=== PATIENT | female | born 1995 | race Caucasian/White ===

== ENCOUNTER → 2019-02-24 11:51 | Outpatient (CLI) | payer OTHER, SELFPAY ==
[2019-02-28 14:58] LABS: HPV Reflexed? NOT INDICATED
== END ==
PROVIDERS: Family Provider Family Medicine; PCP Family Medicine; Visit Provider Family Medicine
DX: Z12.4 Encounter for screening for malignant neoplasm of cervix (principal)
CPT/HCPCS: 88175; G0145

== ENCOUNTER → 2019-04-11 | Outpatient (CLI) | payer OTHER, SELFPAY ==
[2019-04-11 08:15] VITALS: BMI 17.5
[2019-04-11 12:30] LABS: Absolute Neutrophil Count 5.2 X10^3/uL (2.0-7.7); Basophil# 0.02 X10^3/uL; Basophil% 0.3 % (0-1); Eosinophil# 0.02 X10^3/uL; Eosinophils% 0.3 % (0-5); Hematocrit 40.6 % (37-47); Hemoglobin 13.3 g/dl (12.0-15.0); Mean Corp Hgb Conc 32.8 g/gl (32-36); Mean Corpuscular Hgb 29.4 pg (27.0-32.0); Mean Corpuscular Volume 89.6 fL (81-99); Mean Platelet Vol. 9.7 fl (6.2-12.0); Monocyte# 0.41 X10^3/uL; Monocyte% 5.4 % (0-10); Neutrophil # 5.23 X10^3/uL (2.7-7.7); Neutrophil % 68.9 % (47-70); Platelet Count 337 K/mm3 (150-450); RBC Distribution Width CV 12.6 % (11.6-14.6); RBC Distribution Width SD 40.3 fl (35.1-43.9); Red Blood Count 4.53 M/mm3 (4.2-5.4); White Blood Count 7.6 K/mm3 (4.4-11.0)
[2019-04-11 12:33] LABS: POSITIVE COUNT NO; POSITIVE DIFFERENTIAL NO; POSITIVE MORPHOLOGY NO
[2019-04-11 12:40] LABS: BUN 10 mg/dL (7-18); Creatinine, Serum 0.65 mg/dL (0.55-1.02); Glucose 80 mg/dL (74-106)
[2019-04-11 12:41] LABS: ALB/GLOB Ratio 1.2 RATIO (0.9-2.4); AST(SGOT) 22 U/L (15-37); Alanine Aminotransfer ALT/SGPT 40 U/L (13-56); Albumin, Serum 3.8 g/dL (3.2-5.0); Alkaline Phosphatase 48 U/L (45-117); Anion Gap 6 (5-15); BUN/Creat Ratio 15.4 RATIO (10-20); Calcium,Total 8.7 mg/dL (8.5-10.1); Chloride 107 mmol/L (98-107); EST Glomerular Filtration Rate 121 mL/min (>60); Est Glom Filt Rate - Afr Amer 147 mL/min (>60); Globulin 3.1 g/dL (2.2-4.2); Potassium 3.6 mmol/L (3.5-5.1); Protein, Total 6.9 g/dL (6.4-8.2); Sodium Level 139 mmol/L (136-145)
== END | disposition home or self-care (01) ==
LOC: BIMLAB 08:37
PROVIDERS: Family Provider Internal Medicine; PCP Internal Medicine; Visit Provider Internal Medicine
DX: K52.9 Noninfective gastroenteritis and colitis, unspecified (principal)
CPT/HCPCS: 36415; 80053; 85025

== ENCOUNTER → 2019-12-17 09:30 | Outpatient (CLI) | payer OTHER, SELFPAY ==
[2019-04-11 08:15] VITALS: BMI 17.5
[2019-12-17 10:09] LABS: hCG Titer Quant., Serum 339 mIU/mL (1-3)
== END ==
PROVIDERS: PCP Internal Medicine; Referring Provider Obstetrics & Gynecology; Visit Provider Obstetrics & Gynecology
DX: O20.0 Threatened abortion (principal); Z3A.00 Weeks of gestation of pregnancy not specified
CPT/HCPCS: 36415; 84702

== ENCOUNTER → 2019-12-24 09:24 | Outpatient (CLI) | payer OTHER, SELFPAY ==
[2019-12-24 08:42] VITALS: BMI 17.5
[2019-12-24 11:45] LABS: Rubella IgG < 0.2 IU/mL
[2019-12-26 13:11] LABS: V-Zoster IgG (Immunity) > 4000 index (Immune >165)
== END ==
PROVIDERS: PCP Internal Medicine; Referring Provider Obstetrics & Gynecology; Visit Provider Obstetrics & Gynecology
DX: Z01.84 Encounter for antibody response examination (principal)
CPT/HCPCS: 36415; 86762; 86787

== ENCOUNTER → 2020-01-22 14:19 | Outpatient (CLI) | payer OTHER, SELFPAY ==
[2020-01-22 13:52] VITALS: BMI 18.4
[2020-01-22 16:22] LABS: hCG Titer Quant., Serum < 1 mIU/mL (1-3)
== END ==
PROVIDERS: PCP Internal Medicine; Referring Provider Nurse Practitioner Women's Health; Visit Provider Nurse Practitioner Women's Health
DX: O03.9 Complete or unspecified spontaneous abortion without complication (principal)
CPT/HCPCS: 36415; 84702; 86850; 86900; 86901

== ENCOUNTER → 2020-01-29 15:40 | Outpatient (CLI) | payer OTHER, SELFPAY ==
[2020-01-22 14:48] VITALS: BMI 17.5
--- NOTE | 2020-01-29 15:42 | US_ITS ---
STUDY: ULTRASOUND OF THE FEMALE PELVIS - COMPLETE REASON FOR EXAM: Female, 24 years old. PAINFUL MENSES LMP: 01/14/2020 TECHNIQUE: Transabdominal real-time exam with madrid scale image documentation. Transvaginal ultrasound was utilized for better visualization of the ovaries and adnexal areas. TECHNICAL QUALITY: Adequate. COMPARISON: None. FINDINGS: The uterus is anteverted and is in a midline position in transabdominal exam, retroverted in transvaginal exam. The uterus measures 7.8 x 5.4 x 3.4 cm. There is a Nabothian cyst of the cervix. The endometrium measures 10 mm in thickness, and is hyperechoic. There is no demonstrated endometrial mass. There is no demonstrated myometrial mass. I.U.D. - The patient does not have an I.U.D. The right ovary is visualized. The right ovary measures 3.4 x 2.7 x 1.7 cm. Ovarian volume 8 mL. There is no right ovarian cyst or ovarian mass. There is no visualized right adnexal mass or complex lesion. There is normal arterial and normal venous vascularity. The left ovary is visualized. The left ovary measures 3.6 x 2.7 x 1.6 cm. Ovarian volume 8 mL. There is no left ovarian cyst or ovarian mass. There is no visualized left adnexal mass or complex lesion. There is normal arterial and normal venous vascularity. There is minimal fluid in the cul-de-sac. The pre void volume of the bladder was 556 ml. Sedimentation noted in the urinary bladder. Polycystic ovary disease: No. US/Pelvic (Non ) IMPRESSION: Normal female pelvis. Electronically Signed: Consuelo Riggs MD at 0:06 EST , Service support ,
--- NOTE | 2020-01-29 15:42 | US_ITS ---
STUDY: ULTRASOUND OF THE FEMALE PELVIS - COMPLETE REASON FOR EXAM: Female, 24 years old. PAINFUL MENSES LMP: 01/14/2020 TECHNIQUE: Transabdominal real-time exam with madrid scale image documentation. Transvaginal ultrasound was utilized for better visualization of the ovaries and adnexal areas. TECHNICAL QUALITY: Adequate. COMPARISON: None. FINDINGS: The uterus is anteverted and is in a midline position in transabdominal exam, retroverted in transvaginal exam. The uterus measures 7.8 x 5.4 x 3.4 cm. There is a Nabothian cyst of the cervix. The endometrium measures 10 mm in thickness, and is hyperechoic. There is no demonstrated endometrial mass. There is no demonstrated myometrial mass. I.U.D. - The patient does not have an I.U.D. The right ovary is visualized. The right ovary measures 3.4 x 2.7 x 1.7 cm. Ovarian volume 8 mL. There is no right ovarian cyst or ovarian mass. There is no visualized right adnexal mass or complex lesion. There is normal arterial and normal venous vascularity. The left ovary is visualized. The left ovary measures 3.6 x 2.7 x 1.6 cm. Ovarian volume 8 mL. There is no left ovarian cyst or ovarian mass. There is no visualized left adnexal mass or complex lesion. There is normal arterial and normal venous vascularity. There is minimal fluid in the cul-de-sac. The pre void volume of the bladder was 556 ml. Sedimentation noted in the urinary bladder. Polycystic ovary disease: No. US/Transvaginal Non- IMPRESSION: Normal female pelvis. Electronically Signed: Consuelo Riggs MD at 0:06 EST , Service support ,
== END ==
PROVIDERS: PCP Internal Medicine; Referring Provider Nurse Practitioner Women's Health; Visit Provider Nurse Practitioner Women's Health
DX: N94.6 Dysmenorrhea, unspecified (principal)
CPT/HCPCS: 76830; 76856

== ENCOUNTER → 2020-02-09 18:06 | Outpatient (CLI) | payer OTHER, SELFPAY ==
[2020-01-22 14:48] VITALS: BMI 17.5
[2020-02-09 19:33] LABS: hCG Titer Quant., Serum 402 mIU/mL (1-3)
[2020-02-11 19:29] LABS: hCG Titer Quant., Serum 1033 mIU/mL (1-3)
== END ==
PROVIDERS: Nurse Practitioner Women's Health; PCP Internal Medicine; Referring Provider Obstetrics & Gynecology; Visit Provider Obstetrics & Gynecology
DX: N91.2 Amenorrhea, unspecified (principal)
CPT/HCPCS: 36415; 84702

== ENCOUNTER → 2020-02-20 07:41 | Outpatient (CLI) | payer OTHER, SELFPAY ==
[2020-02-10 15:31] VITALS: BMI 17.5
--- NOTE | 2020-02-20 07:54 | US_ITS ---
STUDY: FIRST TRIMESTER OBSTETRICAL ULTRASOUND (TWINS) REASON FOR EXAM: Female, 24 years old. LMP: Unknown. DATING TECHNIQUE: Transabdominal and Transvaginal TECHNICAL QUALITY: Adequate. COMPARISON: None. FINDINGS: There are two demonstrated intrauterine gestational sacs. The amniotic membrane cannot be visualized. BABY A The mean sac diameter (MSD) measure 1.16 cm, indicating an estimated gestational age (EGA) of 5 weeks, 5 days. There is a visualized yolk sac. The yolk sac measures 2.3 mm. There is no demonstrated embryo ( pole). The estimated gestation age (EGA) by US is 5 weeks, 5 days. The estimated date of delivery (WILLIAM) by US is October 17, 2020. BABY B The mean sac diameter (MSD) measure 1.25 cm, indicating an estimated gestational age (EGA) of 5 weeks, 6 days. There is a visualized yolk sac. The yolk sac measures 2.8 mm. There is no demonstrated embryo ( pole). The estimated gestation age (EGA) by US is 5 weeks, 6 days. The estimated date of delivery (WILLIAM) by US is October 16, 2020. MATERNAL ANATOMY The uterus measures 9 cm x 5.9 cm x 4.8 cm. There is no demonstrated uterine fibroid. The cervix is closed. The right ovary measures 4.5 cm x 2.6 cm x 1.8. There is no right ovarian cyst. There is no visualized right adnexal mass or complex lesion. The left ovary measures 3 cm x 2.9 cm x 1.9. There is no left ovarian cyst. There is no visualized left adnexal mass or complex lesion. There is no fluid in the cul de sac. US/Init OB < 14Wks US IMPRESSION: Normal intrauterine first trimester Electronically Signed: Isaias Major, at 11:47 EDT , Service support ,
== END ==
PROVIDERS: PCP Internal Medicine; Referring Provider Obstetrics & Gynecology; Visit Provider Obstetrics & Gynecology
DX: N91.2 Amenorrhea, unspecified (principal)
CPT/HCPCS: 76801

== ENCOUNTER → 2020-03-05 15:04 | Outpatient (CLI) | payer OTHER, SELFPAY ==
[2020-02-10 15:31] VITALS: BMI 17.5
--- NOTE | 2020-03-05 15:06 | US_ITS ---
STUDY: FIRST TRIMESTER OBSTETRICAL ULTRASOUND (TWINS) REASON FOR EXAM: Female, 24 years old. LMP: January 14, 2020 Dating twin . TECHNIQUE: Transvaginal TECHNICAL QUALITY: Adequate. COMPARISON: February 20, 2020. FINDINGS: There are two demonstrated intrauterine gestational sacs. There is a thick wall between the gestational sacs suggesting dichorionic . age by last menstrual period is 7 weeks, 2 days. WILLIAM by last menstrual period is October 20, 2020. BABY A The mean sac diameter (MSD) measure 2.8 cm, indicating an estimated gestational age (EGA) of 8 weeks, 0 days. There is a visualized yolk sac. Yolk sac measures 0.25 cm There is visualization of an embryo. Fetus measures 1.03 cm consistent with a gestational age of 7 weeks, 1 day. The estimated gestational age (EGA) by prior ultrasound is 7 weeks, 5 days. Estimated date of delivery (WILLIAM) by prior ultrasound is October 17, 2020 The estimated gestation age (EGA) by current US is 7 weeks, 4 days. The estimated date of delivery (WILLIAM) by current US is October 18, 2020.. There is demonstrated cardiac activity with a heart rate 144 bpm. BABY B The mean sac diameter (MSD) measure 2.98 cm, indicating an estimated gestational age (EGA) of 8 weeks, 2 days. There is a visualized yolk sac. The yolk sac measures 0.25 cm. There is visualization of an embryo. The crown-rump length (CRL) measures 1.25 cm, indicating an estimated gestational age (EGA) of 7 weeks, 4 days. The estimated gestation age (EGA) by prior US is 7 weeks, 6 days. The estimated date of delivery (WILLIAM) by prior US is October 16, 2020. The estimated gestation age (EGA) by current US is 8 weeks, 0 days. The estimated date of delivery (WILLIAM) by current US is October 15, 2020. There is demonstrated cardiac activity with a heart rate 140 bpm. MATERNAL ANATOMY The retroverted uterus measures 9.1 x 5.8 x 8.3 cm. There is no demonstrated uterine fibroid. The cervix is closed. The right ovary measures 3.3 x 1.86 x 2.0 cm. There are multiple follicles of the right ovary without a dominant cyst. There is no visualized right adnexal mass or complex lesion. The left ovary measures 2.5 x 1.5 x 1.9 cm. There are multiple follicles of the left ovary without a dominant cyst. There is no visualized left adnexal mass or complex lesion. There is no fluid in the cul de sac. IMPRESSION: 1. Dichorionic diamniotic intrauterine . 2. Fetus a demonstrates a gestational age of 7 weeks, 4 days with WILLIAM of October 18, 2020. heart rate is 144 bpm. Adequate interval growth since the prior ultrasound. 3. Fetus B demonstrates a gestational age of 8 weeks, 0 days with WILLIMA of October 15, 2020. heart rate is 140 bpm. Adequate interval growth since the prior ultrasound. 4. Normal ovaries. Electronically Signed: Jose Chiang DO at 17:56 EDT Tel [phone], Service support , STUDY: FIRST TRIMESTER OBSTETRICAL ULTRASOUND (TWINS) REASON FOR EXAM: Female, 24 years old. LMP: January 14, 2020 Dating twin . TECHNIQUE: Transvaginal TECHNICAL QUALITY: Adequate. COMPARISON: February 20, 2020. FINDINGS: There are two demonstrated intrauterine gestational sacs. There is a thick wall between the gestational sacs suggesting dichorionic . age by last menstrual period is 7 weeks, 2 days. WILLIAM by last menstrual period is October 20, 2020. BABY A The mean sac diameter (MSD) measure 2.8 cm, indicating an estimated gestational age (EGA) of 8 weeks, 0 days. There is a visualized yolk sac. Yolk sac measures 0.25 cm There is visualization of an embryo. Fetus measures 1.03 cm consistent with a gestational age of 7 weeks, 1 day. The estimated gestational age (EGA) by prior ultrasound is 7 weeks, 5 days. Estimated date of delivery (WILLIAM) by prior ultrasound is October 17, 2020 The estimated gestation age (EGA) by current US is 7 weeks, 4 days. The estimated date of delivery (WILLIAM) by current US is October 18, 2020.. There is demonstrated cardiac activity with a heart rate 144 bpm. BABY B The mean sac diameter (MSD) measure 2.98 cm, indicating an estimated gestational age (EGA) of 8 weeks, 2 days. There is a visualized yolk sac. The yolk sac measures 0.25 cm. There is visualization of an embryo. The crown-rump length (CRL) measures 1.25 cm, indicating an estimated gestational age (EGA) of 7 weeks, 4 days. The estimated gestation age (EGA) by prior US is 7 weeks, 6 days. The estimated date of delivery (WILLIAM) by prior US is October 16, 2020. The estimated gestation age (EGA) by current US is 8 weeks, 0 days. The estimated date of delivery (WILLIAM) by current US is October 15, 2020. There is demonstrated cardiac activity with a heart rate 140 bpm. MATERNAL ANATOMY The retroverted uterus measures 9.1 x 5.8 x 8.3 cm. There is no demonstrated uterine fibroid. The cervix is closed. The right ovary measures 3.3 x 1.86 x 2.0 cm. There are multiple follicles of the right ovary without a dominant cyst. There is no visualized right adnexal mass or complex lesion. The left ovary measures 2.5 x 1.5 x 1.9 cm. There are multiple follicles of the left ovary without a dominant cyst. There is no visualized left adnexal mass or complex lesion. There is no fluid in the cul de sac. US/Init OB < 14Wks US IMPRESSION: 1. Dichorionic diamniotic intrauterine . 2. Fetus a demonstrates a gestational age of 7 weeks, 4 days with WILLIAM of October 18, 2020. heart rate is 144 bpm. Adequate interval growth since the prior ultrasound. 3. Fetus B demonstrates a gestational age of 8 weeks, 0 days with WILLIAM of October 15, 2020. heart rate is 140 bpm. Adequate interval growth since the prior ultrasound. 4. Normal ovaries. Electronically Signed: Jose Chiang DO at 17:57 EDT Tel [phone], Service support ,
== END ==
PROVIDERS: PCP Internal Medicine; Referring Provider Obstetrics & Gynecology; Visit Provider Obstetrics & Gynecology
DX: O30.001 Twin pregnancy, unspecified number of placenta and unspecified number of amniotic sacs, first trimester (principal); Z3A.00 Weeks of gestation of pregnancy not specified
CPT/HCPCS: 76801; 76802

== ENCOUNTER → 2020-03-22 10:26 | Outpatient (CLI) | payer OTHER, SELFPAY ==
[2020-03-22 09:31] VITALS: BMI 17.5
[2020-03-22 11:54] LABS: Absolute Lymphocyte Count 1.55 X10^3/uL (0.83-4.51); Absolute Neutrophil Count 9.2 X10^3/uL (2.0-7.7); Basophil# 0.03 X10^3/uL; Basophil% 0.3 % (0-1); Eosinophil# 0.04 X10^3/uL; Eosinophils% 0.4 % (0-5); Hematocrit 37.9 % (37-47); Lymphocyte # 1.55 X10^3/ul (4.0); Lymphocyte % 13.7 % (19-41); Mean Corp Hgb Conc 34.3 g/dL (32-36); Mean Corpuscular Hgb 30.2 pg (27.0-32.0); Mean Corpuscular Volume 87.9 fL (81-99); Monocyte# 0.42 X10^3/uL; Monocyte% 3.7 % (0-10); NRBC Flagged by Analyzer 0 % (0-5); Neutrophil # 9.24 X10^3/uL (2.7-7.7); Neutrophil % 81.5 % (47-70); Platelet Count 244 K/mm3 (150-450); RBC Distribution Width CV 11.7 % (11.6-14.6); RBC Distribution Width SD 37.8 fl (35.1-43.9); Red Blood Count 4.31 M/mm3 (4.2-5.4); White Blood Count 11.3 K/mm3 (4.4-11.0)
[2020-03-22 12:48] LABS: HIV - WCH Non-Reactive (Nonreactive); Hepatitis B Surface Antigen Non-Reactive (Nonreactive); Hepatitis C Antibody Non-Reactive (Nonreactive); Rubella IgG 225.6 IU/mL
[2020-03-22 16:32] LABS: Amphetamine Urine VISTA NEGATIVE (<1000 ng/mL); Barbiturate Urine VISTA NEGATIVE (< 200 ng/mL); Benzodiazepine Urine VISTA NEGATIVE (< 200 ng/mL); Cocaine Urine VISTA NEGATIVE (< 300 ng/mL); Ecstacy Urine VISTA NEGATIVE (< 500 ng/mL); Methadone Urine VISTA NEGATIVE (< 300 ng/mL); PCP Urine VISTA NEGATIVE (< 25 ng/mL); THC Urine VISTA NEGATIVE (< 50 ng/mL); Vista UDS pH Range 7
[2020-03-22 19:49] LABS: Chlamydia Trachomatis by PCR Negative (Negative); Neisserai gonorrhoeae by PCR Negative (Negative); Probe Check PASS; Sample Adequacy Control PASS; Specimen Processing Control PASS
[2020-03-25 01:34] LABS: Rapid Plasmin Reagin (RPR) NONREACTIVE (NONREACTIVE)
== END ==
PROVIDERS: PCP Internal Medicine; Referring Provider Obstetrics & Gynecology; Visit Provider Obstetrics & Gynecology
DX: Z34.90 Encounter for supervision of normal pregnancy, unspecified, unspecified trimester (principal)
CPT/HCPCS: 36415; 80307; 85025; 86592; 86703; 86762; 86803; 86850; 86900; 86901; 87086; 87340; 87491; 87591

== ENCOUNTER → 2020-07-16 09:19 | Outpatient (CLI) | payer OTHER, SELFPAY ==
[2020-07-16 09:15] VITALS: BMI 17.5
[2020-07-16 09:56] LABS: Absolute Lymphocyte Count 1.38 X10^3/uL (0.83-4.51); Absolute Neutrophil Count 9.7 X10^3/uL (2.0-7.7); Basophil# 0.03 X10^3/uL; Basophil% 0.3 % (0-1); Eosinophil# 0.04 X10^3/uL; Eosinophils% 0.3 % (0-5); Hemoglobin 11.7 g/dL (12.0-15.0); Lymphocyte # 1.38 X10^3/ul (4.0); Lymphocyte % 11.6 % (19-41); Mean Corp Hgb Conc 33.4 g/dL (32-36); Mean Corpuscular Hgb 31.5 pg (27.0-32.0); Mean Corpuscular Volume 94.1 fL (81-99); Mean Platelet Vol. 9.6 fl (6.2-12.0); Monocyte% 4.2 % (0-10); NRBC Flagged by Analyzer 0 % (0-5); Neutrophil # 9.66 X10^3/uL (2.7-7.7); Neutrophil % 81.2 % (47-70); Platelet Count 187 K/mm3 (150-450); RBC Distribution Width CV 12.8 % (11.6-14.6); RBC Distribution Width SD 44.1 fl (35.1-43.9); Red Blood Count 3.72 M/mm3 (4.2-5.4); White Blood Count 11.9 K/mm3 (4.4-11.0)
[2020-07-16 10:06] LABS: Glucose Challenge Gest 1H 50g 90 mg/dL (70-140)
== END ==
PROVIDERS: PCP Internal Medicine; Referring Provider Obstetrics & Gynecology; Visit Provider Obstetrics & Gynecology
DX: Z34.90 Encounter for supervision of normal pregnancy, unspecified, unspecified trimester (principal)
CPT/HCPCS: 36415; 82950; 85025

== ENCOUNTER 2020-08-30 11:15 | Outpatient (CLI) | payer OTHER, SELFPAY ==
[2020-08-30 10:43] VITALS: BMI 17.5
[2020-08-30 12:11] VITALS: BMI 26.9
--- NOTE | 2020-08-30 12:54 | OB.TRI.PN_ITS ---
Progress Notes Date of Service: 08/30/20 Progress Note: Patient presents for triage evaluation secondary to di-di-twins FHT: A 135 Moderate variability reactive no decelerations category I tracing B 145Moderate variability reactive no decelerations category I tracing [place]: No regular contractions Assessment and plan: Di-di-twins recommend weekly NSTs, reactive NST, reassuring maternal and status patient discharged to home to follow-up as scheduled next week. See problem list details for additional plan information. Multi Select Codes - Urinary/Genital Urinary/Genital CPT Codes: 58810-71 non-stress test Interp
[2020-08-30 13:40] VITALS: BP 118/65; TEMP 36.7
[2020-08-30 13:41] VITALS: BP 118/65; PULSE 93; PULSE 94; O2SAT 96
== END 2020-08-30 13:50 | disposition home or self-care (01) ==
LOC: WPOUT 11:46 → WP 11:46
PROVIDERS: PCP Internal Medicine; Visit Provider Obstetrics & Gynecology
DX: O30.043 Twin pregnancy, dichorionic/diamniotic, third trimester (principal); Z3A.00 Weeks of gestation of pregnancy not specified
CPT/HCPCS: 59025; 59050; 99218; G0378

== ENCOUNTER 2020-09-04 23:55 | Outpatient (CLI) | payer OTHER, SELFPAY ==
[2020-09-05 00:15] VITALS: BP 114/68; PULSE 115
[2020-09-05 00:16] VITALS: TEMP 37; O2SAT 96
[2020-09-05 00:43] VITALS: BMI 27.8
[2020-09-05 00:59] LABS: Glucose, Dipstick Normal (Normal); Ketone-Dipstick Negative (Negative); Leukocyte Esterase-Dipstick Negative /ul (Negative); Nitrite-Dipstick Negative (Negative); Occult Blood-Urine Negative /ul (Negative); Protein-Dipstick Negative (Negative); Specific Gravity, Urine 1.005 (1.002-1.030); Urine Bilirubin Dipstick Negative (Negative); Urine Urobilinogen Normal (Normal)
[2020-09-05 01:07] LABS: Color, Urine Yellow (Yellow); Urine Clarity Clear (Clear)
--- NOTE | 2020-09-05 07:43 | OB.TRI.PN ---
Progress Notes Date of Service: 09/04/20 Progress Note: Patient presents for triage evaluation secondary to contractions FHT: A 140 Moderate variability reactive no decelerations category I tracing B 140 Moderate variability reactive no decelerations category I tracing [place]: irritability Contractions Assessment and plan: threatened labor 1 cm dilated, no change. Reactive NST, reassuring maternal and status patient discharged to home to follow-up as scheduled. See problem list details for additional plan information. Laboratory Studies: Laboratory Tests 09/05/20 Range/Units 00:15 Urine Color Yellow (Yellow) Urine Clarity Clear (Clear) Urine pH 7.0 (5.0 - 8.0) Ur Specific [place] 1.005 (1.002-1.030) Urine Protein Negative (Negative) mg/dl Urine Glucose (UA) Normal (Normal) mg/dl Urine Ketones Negative (Negative) mg/dl Urine Occult Blood Negative (Negative) /ul Urine Nitrite Negative (Negative) Urine Bilirubin Negative (Negative) mg/dL Urine Urobilinogen Normal (Normal) mg/dl Ur Leukocyte Esterase Negative (Negative) /ul Multi Select Codes - Urinary/Genital Urinary/Genital CPT Codes: 77760-65 non-stress test Interp
== END 2020-09-05 01:57 | disposition home or self-care (01) ==
LOC: WPOUT 23:59 → OBT 09-05 00:01
PROVIDERS: PCP Internal Medicine; Visit Provider Obstetrics & Gynecology
DX: O47.9 False labor, unspecified (principal); Z3A.00 Weeks of gestation of pregnancy not specified
CPT/HCPCS: 59025; 59050; 81002; 99218; G0378

== ENCOUNTER 2020-09-08 08:40 | Outpatient (CLI) | payer OTHER, SELFPAY ==
[2020-09-08 08:04] VITALS: BMI 27.8
[2020-09-08 09:08] VITALS: BP 112/70; PULSE 128; TEMP 36.2; O2SAT 96; O2SAT 97
[2020-09-08 09:10] VITALS: BMI 27.8
[2020-09-08 09:24] LABS: Fetal Fibronectin Negative
--- NOTE | 2020-09-08 10:22 | US_ITS ---
STUDY: OBSTETRICAL ULTRASOUND - BIOPHYSICAL PROFILE REASON FOR EXAM: Female, 24 years old -WELL BEING LMP: PRIOR ULTRASOUND: None. TECHNIQUE: TECHNICAL QUALITY: Adequate. FINDINGS: There is a twin gestation. Next Fetus a is in a cephalic presentation. There is demonstrated cardiac activity with a heart rate of 143 bpm. There is a normal amniotic fluid volume. The largest amniotic fluid pocket measures 4.2 cm. The amniotic fluid index (NADIR) is cm. The placenta is left lateral in location and is not low lying. There are Grade 1 placental changes. Age by LMP: 34 weeks, 0 days. WILLIAM by LMP: 10/20/2020. BIOPHYSICAL PROFILE: Breathing Movements (FBM): 2 Gross Body Movements (GBM): 2 Tone (FT): 2 Amniotic Fluid Volume (AFV): 2 TOTAL SCORE: / 8 Fetus B is in a transverse lie with the head on the maternal right side. There is demonstrated cardiac activity with a heart rate of 144 bpm. There is a normal amniotic fluid volume. The largest amniotic fluid pocket measures 3.2 cm. The amniotic fluid index (NADIR) is cm. The placenta is posterior in location and is not low lying. There are Grade 1 placental changes. Age by LMP: 34 weeks, 0 days. WILLIAM by LMP: 10/20/2020. BIOPHYSICAL PROFILE: Breathing Movements (FBM): 2 Gross Body Movements (GBM): 2 Tone (FT): 2 Amniotic Fluid Volume (AFV): 2 TOTAL SCORE: US/Biophysical Prof W/O Non Stres IMPRESSION: Normal biophysical profile of 07/03. Electronically Signed: Arnoldo Murrieta MD at 12:59 EDT Tel , Service support , Refer to twin gestation of biophysical profile. Electronically Signed: Arnoldo Murrieta MD at 12:59 EDT Tel , Service support ,
[2020-09-08] MEDS: Betamethasone/Betamethasone 30 MG/5 ML Vial 12 MG IM (10:33)
--- NOTE | 2020-09-08 13:23 | OB.TRI.PN ---
Progress Notes Date of Service: 09/08/20 Progress Note: NST done for twins, unable to obtain so BPPs done and both 07/03. Laboratory Studies: Laboratory Tests 09/08/20 Range/Units 08:30 Fibronectin Negative
== END 2020-09-08 14:00 | disposition home or self-care (01) ==
PROVIDERS: PCP Internal Medicine; Referring Provider Obstetrics & Gynecology; Visit Provider Obstetrics & Gynecology
DX: O30.003 Twin pregnancy, unspecified number of placenta and unspecified number of amniotic sacs, third trimester (principal); Z3A.34 34 weeks gestation of pregnancy
CPT/HCPCS: 59025; 76819; 82731; 96372; J0702

== ENCOUNTER 2020-09-09 09:15 | Outpatient (CLI) | payer OTHER, SELFPAY ==
[2020-09-08 09:10] VITALS: BMI 27.8
[2020-09-09 09:30] VITALS: BMI 27.6
[2020-09-09] MEDS: Betamethasone/Betamethasone 30 MG/5 ML Vial 12 MG IM (09:47)
--- NOTE | 2020-09-09 10:00 | NURSING ---
pt here for second celestone injection , very tearful from news of family member that was in a serious accident. pt wanting to travel 7hr away and was encouraged not to. celestone given and pt given signs of labor to report to Dr office. pt and stated understanding.
--- NOTE | 2020-09-09 10:07 | NURSING ---
vitals 98.1-104-20 121/68
--- NOTE | 2020-09-09 16:59 | OB.TRI.PN ---
Progress Notes Date of Service: 09/09/20 Progress Note: prematurity, twins, threatened PTL- celestone injection given
== END 2020-09-09 09:55 | disposition home or self-care (01) ==
LOC: WPOUT 09:21 → WP 09:30
PROVIDERS: PCP Internal Medicine; Referring Provider Obstetrics & Gynecology; Visit Provider Obstetrics & Gynecology
DX: O60.00 Preterm labor without delivery, unspecified trimester (principal); Z3A.00 Weeks of gestation of pregnancy not specified; O30.009 Twin pregnancy, unspecified number of placenta and unspecified number of amniotic sacs, unspecified trimester
CPT/HCPCS: 96372; 99218; G0378; J0702

== ENCOUNTER 2020-09-09 23:44 | Outpatient (CLI) | payer OTHER, SELFPAY ==
[2020-09-09 09:30] VITALS: BMI 27.6
[2020-09-10] VITALS: BP 109/66; PULSE 106; PULSE 98; TEMP 36.7; O2SAT 98
[2020-09-10 00:01] VITALS: TEMP 36.7
[2020-09-10 00:17] VITALS: BMI 27.8
[2020-09-10 00:45] LABS: ROM Internal Control Test YES-OK TO RESULT pt. (Internal QC); ROM Patient Test Negative (Negative)
[2020-09-10 07:24] VITALS: BP 127/79; PULSE 85; TEMP 36.7
[2020-09-10 08:11] VITALS: BP 130/81; PULSE 76
--- NOTE | 2020-09-12 22:04 | OB.TRI.PN ---
Progress Notes Date of Service: 09/10/20 Progress Note: seen for possible rom rom negative fht present x 2 dc home labor precautions Laboratory Studies: Laboratory Tests 09/10/20 Range/Units 00:08 Vag Amniotic Fld Detect Negative (Negative) Multi Select Codes - Urinary/Genital Urinary/Genital CPT Codes: No Charge - report visit
== END 2020-09-10 01:00 | disposition home or self-care (01) ==
LOC: WPOUT 23:46 → WP 09-10 10:55
PROVIDERS: PCP Internal Medicine; Referring Provider Obstetrics & Gynecology; Visit Provider Obstetrics & Gynecology
DX: O26.899 Other specified pregnancy related conditions, unspecified trimester (principal); Z3A.00 Weeks of gestation of pregnancy not specified
CPT/HCPCS: 59025; 59050; 84112; 99218; G0378

== ENCOUNTER → 2020-09-17 12:33 | Outpatient (CLI) | payer OTHER, SELFPAY ==
[2020-09-10 00:17] VITALS: BMI 27.8
[2020-09-17 08:50] VITALS: BMI 27.4
--- NOTE | 2020-09-17 12:35 | US_ITS ---
STUDY: OBSTETRICAL ULTRASOUND - BIOPHYSICAL PROFILE REASON FOR EXAM: Female, 25 years old WELL BEING - TWINS LMP: PRIOR ULTRASOUND: None. TECHNIQUE: TECHNICAL QUALITY: Adequate. FINDINGS: There is a twin gestation. Fetus a is in a cephalic presentation. There is demonstrated cardiac activity with a heart rate of 152 bpm. There is a normal amniotic fluid volume. The largest amniotic fluid pocket measures 6.2 cm. The amniotic fluid index (NADIR) is cm. The placenta is posterior in location and is not low lying. There are Grade 2 placental changes. Age by LMP: 35 weeks, 2 days. WILLIAM by LMP: 10/20/2020. BIOPHYSICAL PROFILE: Breathing Movements (FBM): 2 Gross Body Movements (GBM): 2 Tone (FT): 2 Amniotic Fluid Volume (AFV): 2 TOTAL SCORE: / Fetus B is in an oblique presentation with the head on the maternal right side. There is demonstrated cardiac activity with a heart rate of 147 bpm. There is a normal amniotic fluid volume. The largest amniotic fluid pocket measures 6.1 cm. The amniotic fluid index (NADIR) is cm. The placenta is posterior in location and is not low lying. There are Grade 2 placental changes. Age by LMP: 35 weeks, 2 days. WILLIAM by LMP: 10/20/2020. BIOPHYSICAL PROFILE: Breathing Movements (FBM): 2 Gross Body Movements (GBM): 2 Tone (FT): 2 Amniotic Fluid Volume (AFV): 2 TOTAL SCORE: US/Biophysical Prof W/O Non Stres IMPRESSION: Normal biophysical profile of 07/03. Electronically Signed: Arnoldo Murrieta MD at 12:52 EDT Tel , Service support , Refer to twin gestation biophysical profile. Electronically Signed: Arnoldo Murrieta MD at 12:53 EDT Tel , Service support ,
== END ==
PROVIDERS: PCP Internal Medicine; Referring Provider Obstetrics & Gynecology; Visit Provider Obstetrics & Gynecology
DX: O30.049 Twin pregnancy, dichorionic/diamniotic, unspecified trimester (principal); Z3A.35 35 weeks gestation of pregnancy
CPT/HCPCS: 76819

== ENCOUNTER → 2020-09-22 07:58 | Outpatient (CLI) | payer OTHER, SELFPAY ==
[2020-09-17 08:50] VITALS: BMI 27.4
--- NOTE | 2020-09-22 08:08 | US_ITS ---
STUDY: OBSTETRICAL ULTRASOUND - BIOPHYSICAL PROFILE REASON FOR EXAM: Female, 25 years old well being - twins baby A LMP: 01/14/2020 PRIOR ULTRASOUND: Comparison is made with prior study dated 09/17/2020. TECHNIQUE: Transabdominal TECHNICAL QUALITY: Adequate. FINDINGS: There is a single intrauterine fetus. The fetus is in a cephalic presentation. There is demonstrated cardiac activity with a heart rate of 136 bpm. There is a normal amniotic fluid volume. The largest amniotic fluid pocket measures 3 cm x 2.4 cm. The amniotic fluid index (NADIR) is within normal limits cm. The placenta is left lateral in location and is not low lying. There are Grade 2 placental changes. BIOPHYSICAL PROFILE: Breathing Movements (FBM): 2 Gross Body Movements (GBM): 2 Tone (FT): 2 Amniotic Fluid Volume (AFV): 2 TOTAL SCORE: 8 / 8 IMPRESSION: Normal biophysical profile of 8/8. Electronically Signed: Isaias Major, at 15:44 EDT , Service support , STUDY: OBSTETRICAL ULTRASOUND - BIOPHYSICAL PROFILE REASON FOR EXAM: Female, 25 years old well being - twins baby B LMP: 01/14/2020 PRIOR ULTRASOUND: Comparison is made with prior study dated 09/17/2020. TECHNIQUE: Transabdominal TECHNICAL QUALITY: Adequate. FINDINGS: There is a single intrauterine fetus. The fetus is in an oblique presentation with the head on the maternal right side. There is demonstrated cardiac activity with a heart rate of 140 bpm. There is a normal amniotic fluid volume. The largest amniotic fluid pocket measures 4.6 cm x 2.5 cm. The amniotic fluid index (NADIR) is within normal limits. cm. The placenta is right lateral in location and is not low lying. There are Grade 2 placental changes. BIOPHYSICAL PROFILE: Breathing Movements (FBM): 2 Gross Body Movements (GBM): 2 Tone (FT): 2 Amniotic Fluid Volume (AFV): 2 TOTAL SCORE: US/Biophysical Prof W/O Non Stres IMPRESSION: Normal biophysical profile of 07/03. Electronically Signed: Isaias Major, at 15:45 EDT , Service support ,
== END ==
PROVIDERS: PCP Internal Medicine; Referring Provider Obstetrics & Gynecology; Visit Provider Obstetrics & Gynecology
DX: O32.2XX1 Maternal care for transverse and oblique lie, fetus 1 (principal); O30.009 Twin pregnancy, unspecified number of placenta and unspecified number of amniotic sacs, unspecified trimester; Z3A.00 Weeks of gestation of pregnancy not specified
CPT/HCPCS: 76819

== ENCOUNTER → 2020-09-23 16:18 | Outpatient (CLI) | payer OTHER, SELFPAY ==
[2020-09-23 08:33] VITALS: BMI 28.0
== END ==
PROVIDERS: PCP Internal Medicine; Referring Provider Obstetrics & Gynecology; Visit Provider Obstetrics & Gynecology
DX: O09.90 Supervision of high risk pregnancy, unspecified, unspecified trimester (principal); Z3A.00 Weeks of gestation of pregnancy not specified
CPT/HCPCS: 87081

== ENCOUNTER → 2020-09-30 07:56 | Outpatient (CLI) | payer OTHER, SELFPAY ==
[2020-09-17 08:50] VITALS: BMI 27.4
[2020-09-23 08:33] VITALS: BMI 28.0
--- NOTE | 2020-09-30 08:08 | US_ITS ---
STUDY: OBSTETRICAL ULTRASOUND - BIOPHYSICAL PROFILE. Twin A REASON FOR EXAM: Female, 25 years old BPP LMP: 01/14/2020 PRIOR ULTRASOUND: Comparison is made with prior study dated 09/22/2020. TECHNIQUE: Transabdominal TECHNICAL QUALITY: Adequate. FINDINGS: The fetus is in a cephalic presentation. There is demonstrated cardiac activity with a heart rate of 135 bpm. There is a normal amniotic fluid volume. The largest amniotic fluid pocket measures 3.4 cm. The amniotic fluid index (NADIR) is within normal limits. cm. The placenta is posterior and lateral in location and is not low lying. There are Grade 2 placental changes. BIOPHYSICAL PROFILE: Breathing Movements (FBM): 2 Gross Body Movements (GBM): 2 Tone (FT): 2 Amniotic Fluid Volume (AFV): 2 TOTAL SCORE: / 8 IMPRESSION: Normal biophysical profile of 07/03. Electronically Signed: Isaias Major, at 14:24 EST , Service support , STUDY: OBSTETRICAL ULTRASOUND - BIOPHYSICAL PROFILE. Twin B REASON FOR EXAM: Female, 25 years old BPP LMP: 01/14/2020 PRIOR ULTRASOUND: Comparison is made with prior examination dated 09/14/2020. TECHNIQUE: Transabdominal TECHNICAL QUALITY: Adequate. FINDINGS: The fetus is in a breech presentation. There is demonstrated cardiac activity with a heart rate of 148 bpm. There is a normal amniotic fluid volume. The largest amniotic fluid pocket measures 4.1 cm. The amniotic fluid index (NADIR) is within normal limits cm. The placenta is posterior and right lateral There are Grade 2 placental changes. BIOPHYSICAL PROFILE: Breathing Movements (FBM): 2 Gross Body Movements (GBM): 2 Tone (FT): 2 Amniotic Fluid Volume (AFV): 2 TOTAL SCORE: US/Biophysical Prof W/O Non Stres IMPRESSION: Normal biophysical profile of 07/03. Electronically Signed: Isaias Major, at 14:26 EST , Service support ,
== END ==
PROVIDERS: PCP Internal Medicine; Referring Provider Obstetrics & Gynecology; Visit Provider Obstetrics & Gynecology
DX: O30.009 Twin pregnancy, unspecified number of placenta and unspecified number of amniotic sacs, unspecified trimester (principal); Z3A.00 Weeks of gestation of pregnancy not specified
CPT/HCPCS: 76819

== ENCOUNTER → 2020-09-30 10:53 | Outpatient (CLI) | payer OTHER, SELFPAY ==
[2020-09-10 00:17] VITALS: BMI 27.8
[2020-09-30 08:50] VITALS: BMI 28.7
== END ==
PROVIDERS: PCP Internal Medicine; Referring Provider Obstetrics & Gynecology; Visit Provider Obstetrics & Gynecology
DX: Z11.59 Encounter for screening for other viral diseases (principal)
CPT/HCPCS: 87635; C9803; U0003

== ENCOUNTER → 2020-10-05 13:54 | Outpatient (CLI) | payer OTHER, SELFPAY ==
[2020-09-30 08:50] VITALS: BMI 28.7
--- NOTE | 2020-10-05 13:56 | US_ITS ---
STUDY: SECOND AND THIRD TRIMESTER OBSTETRICAL ULTRASOUND - LIMITED. Twin A. REASON FOR EXAM: Female, 25 years old DI/DI TWINS -- GROWTH -- C SECTION SCHEDULED 09/27/20 LMP: 01/14/2020. PRIOR ULTRASOUND: Comparison is made with prior study dated 09/08/2020. TECHNIQUE: Transabdominal TECHNICAL QUALITY: Adequate. FINDINGS: The fetus is in a cephalic presentation. There is demonstrated cardiac activity with a heart rate of 138 bpm. There is a normal amniotic fluid volume. The largest amniotic fluid pocket measures 6.1 cm x 5.9 cm. The amniotic fluid index (NADIR) is within normal limits. cm. The placenta is left lateral in location and is not low lying. There are Grade 2 placental changes. BIOMETRY: BPD: 9.18 cm: 37 weeks, 1 days HC: 33.32 cm: 38 weeks, 0 days AC: 33.46 cm: 37 weeks, 2 days FL: 7.22 cm: 36 weeks, 6 days Age by LMP: 37 weeks, 6 days. WILLIAM by LMP: 10/20/2020. age by prior US: 38 weeks, 1 days. WILLIAM by prior US: 10/18/2020. age by current US: 37 weeks, 3 days. WILLIAM by current US: 10/23/2020. Estimated weight: 3183 grams, +/- 471 grams, 47.8 percentile. IMPRESSION: Twin A with a gestational age of 30 weeks and 1 day. Electronically Signed: Isaias Major, at 10:08 EST , Service support , STUDY: SECOND AND THIRD TRIMESTER OBSTETRICAL ULTRASOUND - TWIN REASON FOR EXAM: Female, 25 years old. LMP: DI/DI TWINS -- GROWTH -- C SECTION SCHEDULED 09/27/20 TECHNIQUE: Transabdominal TECHNICAL QUALITY: Adequate. COMPARISON: None. FINDINGS: Fetus B demonstrates cardiac activity with a heart rate of 160 bpm. Fetus B is in a breech presentation. FETUS B BIOMETRY: BPD: 9.07 cm: 36 weeks, 5 days HC: 32.88 cm: 37 weeks, 2 days AC: 33.68 some: 37 weeks, 4 days FL: 7.27 cm: 37 weeks, 1 days CI: 81% FL/BPD: 8.2% FL/HC: FL/AC: 22% HC/AC: 0.98 age by current US: 37 weeks, 0 days. WILLIAM by current US: 10/26/2020. Estimated weight: 3194 grams, +/- 473 grams, 28.8 %. age by prior US: 38 weeks, 4 days. WILLIAM by previous US: 10/15/2020. Age by LMP: 37 weeks, 6 days. WILLIAM by LMP: 10/20/2020. US/OB Limited With Biometrics IMPRESSION: Single live uterine gestation with mean gestational age of 38 weeks and 4 days. The measurements obtained today following within the normal expected range. Electronically Signed: Isaias Major, at 10:13 EST , Service support ,
== END ==
PROVIDERS: PCP Internal Medicine; Referring Provider Obstetrics & Gynecology; Visit Provider Obstetrics & Gynecology
DX: O32.1XX0 Maternal care for breech presentation, not applicable or unspecified (principal); O30.049 Twin pregnancy, dichorionic/diamniotic, unspecified trimester; Z3A.37 37 weeks gestation of pregnancy
CPT/HCPCS: 76816

== ENCOUNTER 2020-10-07 09:35 | Inpatient (IN) | payer OTHER, SELFPAY ==
[2020-09-17 08:50] VITALS: BMI 27.4
[2020-09-30 08:50] VITALS: BMI 28.7
[2020-10-07] VITALS (18 sets, daily range): BP systolic 95–133; BP diastolic 48–86; PULSE 57–103; RESP 16–18; TEMP 35.5–36.9; O2SAT 95–100; BMI 29.5
--- NOTE | 2020-10-07 08:28 | PCM.HPOB.BLA ---
- Problem List (1) 35 weeks gestation of Status: Acute Comment: covid testing- NEGATIVE (2) Breech presentation Status: Acute Comment: second twin, plan primary if no conversion, csection scheduled 10/07 (3) Dichorionic diamniotic twin Status: Acute Comment: plan growth US q 4 weeks after 28 weeks. wkly NST @ 32 wks. delivery by 38. 33 wk growth normal (4) Status: Acute Qualifiers: Comment: declined genetic, carrier and NTD screening. nl anatomy. 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 Is patient in pain?: No Allergies No Known Allergies Allergy (Verified 09/30/20 08:50) Medications Vits [Prenatabs FA ] 1 tab PO DAILY 09/08/20 [History Confirmed 09/30/20] Last Menstral Period: 01/14/20 Zika: Zika virus screening: Negative : No PFSH PFSH Medical History GERD (gastroesophageal reflux disease) (Acute) Carpal tunnel syndrome (Resolved) Hypoglycemia (Resolved) Low back problem (Resolved) Migraines (Resolved) Mold exposure (Resolved) Seasonal allergies (Inactive) Surgical History No history of previous surgery (Acute) Family History Father Hypertension Grandfather Parkinson disease Grandmother CVA (cerebral vascular accident) Mother Thyroid disorder Social History (Updated 09/30/20 @ 09:[address] 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 pets and animals: Yes history of recent travel: No sexually active: Yes Smoking Status: Never smoker second hand exposure: No alcohol intake: current alcohol intake frequency: a few times a month details: not while substance use type: does not use caffeine: Yes what type of physical activity do you participate in: none seatbelt use: always do you feel safe at home: Yes additional social history: Toñito-PASCALE Pregancy History 2 Elective abortions Hx Para Spontaneous abortions Hx # Term Pregnancies Ectopic pregnancies Hx # Pregnancies Multiple births # of living children HPI est ob BPP before this visit TWINS: Details: DONA MCDANIEL is a 25 year old who presents for routine OB visit. she is going to have a primary cs for breech second twin. OB Visit WILLIAM Calculator Estimated Delivery Date Method Current WG Current Estimate 10/20/20 LMP (Certain) 37w 1d # 2 Expected Delivery Route/Plan if vtx Labor Preferences: labor support person: Toñito pain management options preferred: interested in natural labor, but open to epidural. Discussed possibility of placing epidural catheter, but not dosing. Discussed route of delivery if baby B breech. Labor intervention preferences: open to all standard interventions cut cord/dad catch: cord : [] PP control planned: discussed possible delivery modalities and possible indications for each including R/B/A of , VAVD, and CS. questions answered. discussed possible routes of delivery and associated risks: special requests: denies Specific Issue/Plans flu vaccine: given 08/30 tdap vaccine: given 07/16 rhogam: NA LARC form signed: declined movement and labor precautions reviewed. Problem list reviewed and updated with the most current plan of care details and appropriate orders placed. Relevant counseling for the gestational age provided. Continue routine care and follow up unless otherwise noted in visit notes/problem list details Initial Weight: 111 lb Date EGA Weight BP Urine Prot Glucose FHR FuHt Pres Dilation Effaced St Visit Note 03/22/20 9w 5d 111 lb (+0 oz) 106/60 A 160 B 165 A B A B A B 04/21/20 14w 0d 114 lb 4 oz (+3 lb 4 oz) 126/60 Negative Negative A 150 B 153 A B A B A SM- no vb cramping, doing well B 05/21/20 18w 2d 124 lb (+13 lb) 120/56 A 125 B 145 A B A B A SM- no vb cramping good fm B 06/18/20 22w 2d 132 lb (+21 lb) 104/86 Negative Negative A 145 B 120 A B A B A SM- no vb cramping good fm B 07/16/20 26w 2d 143 lb 8 oz (+32 lb 8 oz) 130/62 Negative Negative A 150 B 135 A Cephalic B Cephalic A B A Sm- no vb lof good fm no regular ctx, schedule visits B 07/30/20 28w 2d 144 lb 8 oz (+33 lb 8 oz) 110/60 Negative Negative A 140 B 160 A Cephalic B Breech A B A GP - no LOF, VB, DFM. Discussed possible routes of delivery if baby B breech and pain management. B 08/16/20 30w 5d 150 lb (+39 lb) 110/66 Negative Negative A 145 B 140 A Cephalic B Cephalic A B A GP - no LOF, VB, DFM, ctx. Babies now vtx/vtx. Increased pelvic pressure. Discussed PTL precautions. Discussed pelvic support band. B 08/30/20 32w 5d 153 lb (+42 lb) 124/66 Negative Negative A 135 B 145 A Cephalic B Cephalic A B A SM- no vb lof good fm no regualr ctx but having some cramping. increased nausea declines meds. B 09/08/20 34w 0d 157 lb 2 oz (+46 lb 2 oz) 122/68 Negative Negative A B A B 1 40 A -2 B A SM- cervical exam due to intermittent ctx. nsts after visit today B 09/17/20 35w 2d 155 lb (+44 lb) 112/76 Negative Negative A 145 B 125 A Cephalic B Breech A B A GP - no ctx, LOF, VB, DFM. Having allergy symptoms. Discussed safe medications. Discussed routes of delivery depending on position of baby B. B 09/23/20 36w 1d 158 lb 4 oz (+47 lb 4 oz) 120/88 Negative Negative A 140 B 145 A Cephalic B Breech A B A SM- discussed needing for delivery due to second baby breech and larger than baby a. plan delivery at 38 weeks. no vb lof good fm irregular ctx. B 09/30/20 37w 1d 162 lb 2 oz (+51 lb 2 oz) 130/76 Negative Negative A 120 B 140 A Cephalic B Breech A B A GP -no ctx, LOF, VB, DFM. Denies complaints. Discussed scheduled PCD on 10/07. Discussed risks of and what to expect. Has final growth US 10/04. B ACOG First Trimester First Trimester: Desire for , Alcohol, Tobacco Cessation, Illicit/Recreational Drug/Substance Use, Intimate Partner Violence, Barriers to care, Unstable Housing, Communication Barriers, Environmental/Work Hazards, Anticipated Course of Care, Toxoplasmosis Precations, Use of Any medications, Sexual activity, Exercise, Dental Care, Sauna/Hot tub use, Seat Belt use, Childbirth classes/Hospital facilities, , Travel, Indications for US and Screening for Aneuploidy Diagnostics Diagnostics Details: HIV: Urine Culture: Sequential Screen: NIPT Screen: ROS Const Reports system reviewed and no additional complaints, except as docu ENT Reports system reviewed and no additional complaints, except as docu Card Reports system reviewed and no additional complaints, except as docu Resp Reports system reviewed and no additional complaints, except as docu GI Reports system reviewed and no additional complaints, except as docu Reports system reviewed and no additional complaints, except as docu, Denies abnormal vaginal bleeding, Denies painful urination, Denies nipple discharge, Denies pelvic pain, Denies vaginal discharge, Denies vaginal odor, Denies vaginal itching Musc Reports system reviewed and no additional complaints, except as docu Skin/Breast Reports system reviewed and no additional complaints, except as docu, Denies nipple discharge Neuro Yes system reviewed and no additional complaints, except as docu Psych Reports system reviewed and no additional complaints, except as docu Exam Const General: cooperative, healthy appearing, comfortable, no acute distress, well developed, well groomed Nutritional Appearance: average body habitus, well nourished Orientation: alert, awake, oriented x3 [facility] Head: normal to inspection, normocephalic, atraumatic Eyes Pupils: PERRL, accommodation normal Resp Effort & Inspection: normal respiratory effort, able to speak in complete sentences, symmetric chest movement Cardio Rate: regular rate GI Palpation: soft, no guarding, no masses, nontender Skin General: no rashes or lesions noted, elasticity normal, turgor normal Neuro General: alert, awake, oriented x3 Cranial Nerves: CN's II-XI intact bilaterally, sense of smell intact, PERRL, accommodation normal, EOM intact bilaterally Speech: speech normal Gait: normal gait Psych Appearance: grossly normal, well kempt Mental Status: mental status grossly normal Mood: congruent mood Affect: normal affect Speech and Movement: speech and movement normal Attitude: cooperative Thought Process: normal Thought Content: normal Judgment: judgment good Results POC Urinalysis 2 Dip (Clinic) Office Urine Glucose Negative Last Edit by Dona Colby on 09/30/20 09:00 Office Urine Protein Negative Last Edit by Dona Colby on 09/30/20 09:00 Assessment & Plan Problems 1. Breech presentation O32.1XX0 second twin, plan primary if no conversion, csection scheduled 10/07 2. 35 weeks gestation of Z3A.35 covid testing ordered 09/15/20c 3. Supervision of high-risk O09.90 PRR WILLIAM 10/20/2020 boy girl surprise names Spouse: Toñito 4. 37 weeks gestation of Z3A.37 declined genetic, carrier and NTD screening. nl anatomy. 5. Dichorionic diamniotic twin O30.049 plan growth US q 4 weeks after 28 weeks. wkly NST @ 32 wks. delivery by 38. 33 wk growth normal Plan Reviewed what to expect day of and need to arrive 2 hours prior to scheduled time. Discussed risks associated with including bleeding, infection, and visceral or vascular injury. All questions answered. Pre-op packet provided to patient. Orders Orders: POC Urinalysis 2 Dip (Clinic) Today Coding Level of Care Code OB Routine Diagnoses Breech presentation O32.1XX0 35 weeks gestation of Z3A.35 Supervision of high-risk O09.90 37 weeks gestation of Z3A.37 ??Weeks of gestation: 37 weeks Dichorionic diamniotic twin O30.049 UPDATE- I have seen the patient and performed any clinically relevant updates to the history and physical exam. Danika Cruz MD
[2020-10-07 10:38] LABS: Absolute Lymphocyte Count 1.48 X10^3/uL (0.83-4.51); Absolute Neutrophil Count 6.6 X10^3/uL (2.0-7.7); Basophil# 0.01 X10^3/uL; Basophil% 0.1 % (0-1); Eosinophil# 0.03 X10^3/uL; Eosinophils% 0.3 % (0-5); Hematocrit 40.3 % (37-47); Hemoglobin 13.2 g/dL (12.0-15.0); Lymphocyte # 1.48 X10^3/ul (4.0); Mean Corp Hgb Conc 32.8 g/dL (32-36); Mean Corpuscular Hgb 30.4 pg (27.0-32.0); Mean Corpuscular Volume 92.9 fL (81-99); Mean Platelet Vol. 10.8 fl (6.2-12.0); Monocyte# 0.53 X10^3/uL; Monocyte% 6.1 % (0-10); NRBC Flagged by Analyzer 0 % (0-5); Neutrophil # 6.63 X10^3/uL (2.7-7.7); Platelet Count 155 K/mm3 (150-450); RBC Distribution Width CV 13.3 % (11.6-14.6); RBC Distribution Width SD 45.5 fl (35.1-43.9); Red Blood Count 4.34 M/mm3 (4.2-5.4); White Blood Count 8.7 K/mm3 (4.4-11.0)
[2020-10-07] MEDS: Acetaminophen 500 MG Tablet 1000 MG PO ×3 (10:43→23:26)
[2020-10-07] MEDS: Lactated Ringers 1,000 ML 999 ML IV (10:46)
[2020-10-07] MEDS: Lactated Ringers 1,000 ML 150 ML IV (11:45)
[2020-10-07] MEDS: Sodium Citrate/Citric Acid 30 ML UDC PO (12:10)
[2020-10-07] MEDS: Cefazolin 2 GM in 0.9% Normal Saline 100 ML IV (12:15)
[2020-10-07] MEDS: Oxytocin 30 units/NS 500 ml 30 UNITS/500 ML IV.SOLN 167 UNITS IV (12:30)
--- NOTE | 2020-10-07 13:11 | OP.PCM_ITS ---
Problem List (1) 35 weeks gestation of Status: Acute Comment: covid testing- NEGATIVE (2) Breech presentation Status: Acute Comment: second twin, plan primary if no conversion, csection scheduled 10/07 (3) Dichorionic diamniotic twin Status: Acute Comment: plan growth US q 4 weeks after 28 weeks. wkly NST @ 32 wks. delivery by 38. 33 wk growth normal (4) Status: Acute Qualifiers: Comment: declined genetic, carrier and NTD screening. nl anatomy. 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 Reyna catheter was placed. The patient was placed in the dorsal supine position with leftward tilt. Patient was prepped and draped in the normal sterile fashion. Pfannenstiel skin incision was made with the scalpel and carried through to the underlying layer of fascia with the scalpel. Fascia was nicked in the midline and the incision extended laterally. The rectus bellies were dissected off superiorly and inferiorly with out complication both sharply and bluntly. The peritoneum was entered digitally. The incision was stretched and a low transverse uterine incision was made with the scalpel. The infant's head was delivered atra umatically followed by the anterior and posterior shoulders without complication the rest of the infant delivered. The cord was clamped and cut and the was handed off to awaiting nurse. second amniotic sac was ruptured and baby b delivered complete breech and spontaneous expulsion of the head. delayed cord clamping was done and then the cord clamped and cut and handed off to nurse. The placenta was delivered spontaneously immediately following and was noted to be intact and have a three-vessel cord. The uterus was exteriorized cleared of all clots and debris, and the incision was closed in a double layer closure using #1 Monocryl. The ovaries and fallopian tubes were noted to be within normal limits. The uterus was returned to the maternal abdomen and gutters were cleared of all clots and debris. The peritoneum was closed with 3-0 Monocryl in a running fashion. Gloves were changed prior to fascial closure. Fascia was closed with 0 PDS in a running fashion. Subcutaneous tissue was copiously irrigated and the skin was closed with 3-0 Monocryl in a subcuticular fashion. Mepilex dressing was applied without complication. Patient was taken to recovery in stable condition. It was discussed with the patient that based on the clinical information obtained during this encounter, combined with her history, at this time I would recommend vaginal or cesareans for future deliveries if further pregnancies are desired. Amniotic Membrane Rupture Type: Artificial Amniotic Fluid Description: Clear Placenta Disposition: [facility] Specimen(s) sent to pathology: yes Drain: Reyna to straight drain Cord Entanglement: None Esitmated Blood Loss (ml): 800 Infant Gender: Female - a female b male Delayed cord clamping: Yes Antibiotic Given: Ancef 2 grams IV x1 Baby B - Information Amniotic Membrane Rupture Type: Artificial Presentation: Complete Breech - Operative Information Cord Entanglement: None Cord Vessel Description: 3 Vessels Infant B gender: Male Multi Select Codes - Urinary/Genital Urinary/Genital CPT Codes: 91555 Delivery global pkg - twins
--- NOTE | 2020-10-07 14:26 | NURSING ---
zandra care and pad change.
--- NOTE | 2020-10-07 14:43 | NURSING ---
pt denies symptoms of hypotension. will continue to monitor.
[2020-10-07] MEDS: Lactated Ringers 1,000 ML 100 ML IV (15:02)
--- NOTE | 2020-10-07 15:03 | PLAC_PTH ---
PATIENT: VINICIUS MCDANIEL LOC: [facility] U#:[id number] AGE/SX: 25 ROOM: WP004 RE10/07/[address]: Dr. Danika Cruz MD : 1995 BED: 1 DIS: 10/09/2020 SPEC #: [id number] RECD: 10/07/20 15:14 STATUS: MARILY RENickie #: [id number] IRAIDA: 10/07/20 15:[address]: Danika Cruz DEPT: SURGICAL PATHOLOGY RECD BY: Roslyn Reis ENTERED: 10/08/20 07:43 SP TYPE: PLACENTA OTHR DR: Dr. Janee López MD Tissues: Placenta, NOS Procedures: Surgery Specimen Level V HEADER OPERATION: Primary section PRE-OP DIAGNOSIS: Twin delivery TISSUE SUBMITTED: Placenta, twin delivery, cord clamp on baby A MICROSCOPIC DIAGNOSIS Dichorionic diamniotic twin placenta (958 gm): Placenta A: Umbilical cord - trivascular with inflammation. Peripheral membranes - no pathologic change. Placental disc - intravillous congestion, mild Shad-Owen change. Placenta B: Umbilical cord - trivascular with inflammation. Peripheral membranes - no pathologic change. Placental disc - Shad-Owen change, mild intervillous congestion. AM:darron 10/12/20 COMMENT Case has been reviewed in consultation with Dr. Alba who concurs with the above diagnosis. IDC:[id number] MICROSCOPIC DESCRIPTION Slides are reviewed. GROSS DESCRIPTION SPECIMEN: TWIN PLACENTA / CLINICAL INFORMATION: A. Weight: A - 3.075 kg; B - 2.63 kg B. Gestational Age: 38 weeks C. Sex: A - Female, B - Male Received is a twin placenta consisting of single placental disc, two amniotic sacs and two umbilical cords. The placenta is not identified as baby A or baby B. They are assigned A and B. The umbilical cord with the clamp is assigned as placenta A. The dividing membranous septum is present in the center of the placental disc. PLACENTAL WEIGHT (POST FIXATION): 958 gm PLACENTAL DIMENSIONS: 22 x 18 x 3.5 cm PLACENTAL SHAPE: Usual ovoid PLACENTAL WEIGHT FOR GESTATIONAL AGE: Within 10-99th percentile (over/under percentile) PLACENTA A: (with clamp) MEMBRANES - Present A. Insertion: Marginal B. Site of rupture from edge: At edge of placental disc C. Color of membrane: Sequeira-madrid D. Abnormalities: None UMBILICAL CORD - Present A. Color: Sequeira-madrid B. Insertion: Paracentral C. Length: 34 cm D. Diameter: 1 cm E. Number of vessels: Three F. Abnormalities: None PLACENTA B: MEMBRANES - Present A. Insertion: Marginal B. Site of rupture from edge: At edge of placental disc C. Color of membrane: Sequeira-madrid D. Abnormalities: None UMBILICAL CORD - Present A. Color: Sequeira-madrid B. Insertion: Central C. Length: 21 cm D. Diameter: 1.2 cm E. Number of vessels: Three F. Abnormalities: A few false knots are noted. PLACENTAL DISC - Present. A few blood clots are noted on the placental surface. A. Color of surface: Sequeira-madrid B. surface abnormalities: None C. Maternal cotyledons: Intact with minimal tears D. Attached retro placental clot: No clot E. Cut surface: Dark red and spongy F. Lesions: None G. Separate clot: Absent SECTIONS SUBMITTED: 11 cassettes 1 - Dividing membranous septum 2-6 - placenta A (2 - membrane roll, maternal end, 3 - umbilical cord, end notched, 4-6 - body of the placenta including maternal and surfaces) 7-11 - placenta B (7 - membrane roll, umbilical cord, maternal end, 8 - umbilical cord, end notched, 9-11 - body of the placenta including maternal and surfaces). SJ:darron 10/11/20 TC:5 CPT: 72796 x2
[2020-10-07 15:30] LABS: Pathology Specimen OB SEE PATHOLOGY REPORT
[2020-10-07] MEDS: Ketorolac 30 MG/ML Syringe IV ×2 (17:15→23:27)
[2020-10-07] MEDS: Ondansetron 4 MG/2 ML Vial IV (17:29)
--- NOTE | 2020-10-07 21:11 | NURSING ---
2034 a harini sized clot noted as pt up to restroom. fundus firm at U, small amts of lochia noted to peripad. will monitor
[2020-10-08 04:00] VITALS: BP 107/56; PULSE 76; RESP 16; TEMP 36.7; O2SAT 96
[2020-10-08] MEDS: Ondansetron 4 MG/2 ML Vial IV (04:06)
[2020-10-08] MEDS: 0.9% Saline Lock 10 ML Syringe IV ×3 (04:07→12:09)
[2020-10-08 04:17] LABS: Hematocrit 32.6 % (37-47); Hemoglobin 10.9 g/dL (12.0-15.0); Mean Corp Hgb Conc 33.4 g/dL (32-36); Mean Corpuscular Hgb 30.4 pg (27.0-32.0); Mean Corpuscular Volume 90.8 fL (81-99); Platelet Count 160 K/mm3 (150-450); RBC Distribution Width CV 13.5 % (11.6-14.6); Red Blood Count 3.59 M/mm3 (4.2-5.4); White Blood Count 15.1 K/mm3 (4.4-11.0)
[2020-10-08] MEDS: Acetaminophen 500 MG Tablet 1000 MG PO ×3 (05:32→17:56)
[2020-10-08] MEDS: Ketorolac 30 MG/ML Syringe IV ×2 (05:32→12:08)
[2020-10-08 08:51] VITALS: BP 108/62; PULSE 68; RESP 16; TEMP 36.6
[2020-10-08] MEDS: Senna/Docusate Sodium 1 Tablet PO (11:12)
[2020-10-08] MEDS: Prenatal Vits Tablet 1 TABLET PO (12:09)
[2020-10-08 12:22] VITALS: BP 110/68; PULSE 72; RESP 18; TEMP 36.6
[2020-10-08] MEDS: Naproxen 250 MG Tablet 500 MG PO (18:06)
[2020-10-08] MEDS: oxyCODONE 5 MG Tablet PO (18:18)
--- NOTE | 2020-10-08 19:30 | PN.OBGYN_ITS ---
Patient Problems: Active and Suspected Problems (Last Updated 10/07/20 @ 11:03 by Marcela Bueno) Dichorionic diamniotic twin (Acute) plan growth US q 4 weeks after 28 weeks. wkly NST @ 32 wks. delivery by 38. 33 wk growth normal (Acute) declined genetic, carrier and NTD screening. nl anatomy. Supervision of high-risk (Acute) PRR WILLIAM 10/20/2020 boy girl surprise names Spouse: Toñito 35 weeks gestation of (Acute) covid testing- NEGATIVE Breech presentation (Acute) second twin, plan primary if no conversion, csection scheduled 10/07 Subjective: Patient doing well without complaints. Tolerating PO. Ambulating and voiding without difficulty. breast feeding well. Denies chest pain, shortness of breath, calf pain/swelling, fevers, chills, lightheadedness. - Physical Exam Vitals/I&O's: Vital Signs Temp Pulse Resp BP Pulse Ox 98 F 72 18 110/68 96 10/08/20 12:22 10/08/20 12:22 10/08/20 12:22 10/08/20 12:22 10/08/20 04:00 Oxygen Delivery Method Room Air Weight: 166 lb 10.711 oz Body Mass Index (BMI) 29.5 Intake and Output for Last 24 Hours 10/06/20 10/07/20 10/08/20 23:59 23:59 23:59 Intake Total 3706.85 / 3706.85 1296.67 / 1296.67 Output Total 1500 / 1500 2400 / 2400 Balance 2206.85 / 2206.85 -1103.33 / -1103.33 General: Alert, Oriented x3 Laboratory Results 10/08/20 04:10: WBC 15.1 H, RBC 3.59 L, Hgb 10.9 L, Hct 32.6 L, MCV 90.8, MCH 30.4, MCHC 33.4, RDW Std Deviation 45.0 H, RDW Coeff of Wandy 13.5, Plt Count 160, MPV 10.0 Current Medications Acetaminophen (Acetaminophen 500 Mg Tablet) 1,000 mg PO Q6H VALERIE Last Admin: 10/08/20 17:56 Dose: 1,000 mg Documented by: Bisacodyl (Bisacodyl 10 Mg Suppository) 10 mg RECTAL UD PRN PRN Reason: If no BM Hydrocortisone (Hydrocortisone 2.5% Crm) 1 applic TOPICAL TID PRN PRN; Protocol PRN Reason: Discomfort Lactated Ringer's () 1,000 mls @ 100 mls/hr IV .Q10H [facility] Last Infusion: 10/08/20 01:00 Dose: Infused Documented by: Methylergonovine Maleate (Methylergonovine 0.2 Mg/Ml Ampul) 0.2 mg IM X1 PRN PRN Reason: Uterine Atony Naloxone HCl (Naloxone 0.4 Mg/Ml Syringe) 0.02 mg IV Q1M PRN PRN Reason: RR <10 and pt unresponsive Naproxen (Naproxen 250 Mg Tablet) 500 mg PO Q8H [facility] Last Admin: 10/08/20 18:06 Dose: 500 mg Documented by: Ondansetron HCl (Ondansetron 4 Mg/2 Ml Vial) 4 mg IV Q4H PRN PRN PRN Reason: Nausea Last Admin: 10/08/20 04:06 Dose: 4 mg Documented by: Oxycodone HCl (Oxycodone 5 Mg Tablet) 5 - 10 mg PO Q4H PRN PRN PRN Reason: Pain Score 4-10 Last Admin: 10/08/20 18:18 Dose: 10 mg Documented by: Multivit/Folic Acid/Iron ( Vits Tablet) 1 tablet PO DAILY@1200 [facility] Last Admin: 10/08/20 12:09 Dose: 1 tablet Documented by: Prochlorperazine Edisylate (Prochlorperazine 10 Mg/2 Ml Vial) 10 mg IV Q6H PRN PRN PRN Reason: NAUSEA Senna/Docusate Sodium (Senna/Docusate Sodium 1 Tablet) 0 tablet PO DAILY [facility] Last Admin: 10/08/20 11:12 Dose: 1 tablet Documented by: Simethicone (Simethicone 80 Mg Tablet) 80 mg PO [facility] PRN PRN Reason: Indigestion/stomach pain Last Admin: 10/08/20 18:17 Dose: 80 mg Documented by: Sodium Chloride (0.9% Saline Lock 10 Ml Syringe) 5 - 15 ml IV UD PRN PRN Reason: SALINE FLUSH Last Admin: 10/08/20 12:09 Dose: 5 ml Documented by: Medical Necessity - Tobacco Use Smoking Status: Never smoker Assessment/Plan All Active Problems (Last Updated 10/07/20 @ 11:03 by Marcela Bueno) Dichorionic diamniotic twin (Acute) (Acute) Supervision of high-risk (Acute) 35 weeks gestation of (Acute) Breech presentation (Acute) Carpal tunnel syndrome (Resolved) GERD (gastroesophageal reflux disease) (Resolved) Gastroenteritis (Resolved) Hypoglycemia (Resolved) Low back problem (Resolved) Mold exposure (Resolved) Twin in first trimester (Resolved) s/p LTCS PPD # 1 1. routine post care 2. breast feeding- support given 3. rh positive 4. rubella immune
[2020-10-08 20:53] VITALS: BP 118/64; PULSE 77; RESP 16; TEMP 36.8; O2SAT 96
[2020-10-09] MEDS: Acetaminophen 500 MG Tablet 1000 MG PO ×3 (00:22→12:31)
[2020-10-09] MEDS: Naproxen 250 MG Tablet 500 MG PO ×3 (00:22→14:37)
[2020-10-09] MEDS: Bisacodyl 10 MG Suppository RECTAL (00:33)
[2020-10-09 01:20] VITALS: BP 97/47; PULSE 71; RESP 16; TEMP 35.9
--- NOTE | 2020-10-09 06:33 | DCINST_ITS ---
Discharge Diet: No Restrictions Discharge Activity: May Not Drive - for 2 weeks, May not drive while taking narcotic pain medications., May Shower, May Take a Tub Bath - in 7 days May resume sexual activity in: 4-6 weeks Lifting Restrictions: 20 pounds Additional Activity Instructions:: Nothing in the vagina for 4-6 weeks. You may return to work/school in 6 weeks. Call your doctor if your incision/area has: Continuous Slow Oozing, Sudden Increased Bleeding, Increased Pain/ Swelling, Increased Redness, Foul Smelling Discharge Call your doctor if you observe: Fever of 101 or Higher, Using more than one pad per hour - for 2 hours Suture Line Care: Avoid Pulling/Pushing, Avoid Pinching/Bending Cleanse incision/area with: Keep Dressing Clean & Dry Additional Instructions: If you experience any of the following, contact your healthcare provider. * Bleeding that soaks a pad every hour for 2 hours * Fever 100.4 or higher * Unrelieved incision or abdominal pain * Swelling, redness, discharge or bleeding from your incision or episiotomy site * Your incision begins to separate * Problems urinating (including inability to urinate or burning while urinating). * Visual changes * Severe headache * Flu-like symptoms * Pain or redness in one of both of your breasts * Pain, warmth, tenderness or swelling in your legs, especially the calf area * Frequent nausea and vomiting * Symptoms of depression or anxiety If you experience any of the following, call 911 or go to the nearest Emergency Room. * Chest pain * Problems breathing * Seizure activity * Partial or complete paralysis of a body part, slurred speech, weakness or drooping of the face, or a sudden inability to walk or hold your balance Allergies/Adverse Reactions: Allergies No Known Allergies Allergy (Verified 09/30/20 08:50) Medications to take at Discharge Vits [Prenatabs FA ] 1 tab PO DAILY 09/08/20 Naproxen [Naprosyn] 250 - 500 mg PO Q8H PRN PRN #30 tab 10/09/20 Oxycodone HCl/Acetaminophen [Percocet 5-325] 1 - 2 tab PO Q6H PRN PRN 7 Days #15 tab 10/09/20 The following prescriptions were given: Naproxen [Naprosyn] 250 - 500 mg PO Q8H PRN PRN #30 tab PRN Reason: MILD PAIN Transmission Status: Received by [facility] Oxycodone HCl/Acetaminophen [Percocet 5-325] 1 - 2 tab PO Q6H PRN PRN 7 Days #15 tab PRN Reason: Pain Transmission Status: Received by [facility] Follow-Up: Call to make an appointment with your doctor for an incision check in 1-2 weeks. You will also need a 6 week post- follow up appointment. Test results from this visit will be discussed in further detail at your follow- up appointment, if applicable. Please Follow Up With: Danika Cruz MD - Call to make an appointment for an incision check in 1-2 [phone] When: You will need a post- check in 6 weeks. Primary Care Physician: Janee López MD [Primary Care Provider] -
--- NOTE | 2020-10-09 06:33 | PCM.PN.OB ---
Patient Problems: Active and Suspected Problems (Last Updated 10/07/20 @ 11:03 by Marcela Bueno) Dichorionic diamniotic twin (Acute) plan growth US q 4 weeks after 28 weeks. wkly NST @ 32 wks. delivery by 38. 33 wk growth normal (Acute) declined genetic, carrier and NTD screening. nl anatomy. Supervision of high-risk (Acute) PRR WILLIAM 10/20/2020 boy girl surprise names Spouse: Toñito 35 weeks gestation of (Acute) covid testing- NEGATIVE Breech presentation (Acute) second twin, plan primary if no conversion, csection scheduled 10/07 Subjective: Patient doing well without complaints. Tolerating PO. Ambulating and voiding without difficulty. feeding well. Denies chest pain, shortness of breath, calf pain/swelling, fevers, chills, lightheadedness. - Physical Exam Vitals/I&O's: Vital Signs Temp Pulse Resp BP Pulse Ox 96.6 F L 71 16 97/47 L 96 10/09/20 01:20 10/09/20 01:20 10/09/20 01:20 10/09/20 01:20 10/08/20 20:53 Oxygen Delivery Method Room Air Weight: 166 lb 10.711 oz Body Mass Index (BMI) 29.5 Intake and Output for Last 24 Hours 10/07/20 10/08/20 10/09/20 23:59 23:59 23:59 Intake Total 3706.85 / 3706.85 1296.67 / 1296.67 Output Total 1500 / 1500 2400 / 2400 Balance 2206.85 / 2206.85 -1103.33 / -1103.33 General: Alert, Oriented x3 Current Medications Acetaminophen (Acetaminophen 500 Mg Tablet) 1,000 mg PO Q6H VALERIE Last Admin: 10/09/20 06:26 Dose: 1,000 mg Documented by: Bisacodyl (Bisacodyl 10 Mg Suppository) 10 mg RECTAL UD PRN PRN Reason: If no BM Last Admin: 10/09/20 00:33 Dose: 10 mg Documented by: Hydrocortisone (Hydrocortisone 2.5% Crm) 1 applic TOPICAL TID PRN PRN; Protocol PRN Reason: Discomfort Methylergonovine Maleate (Methylergonovine 0.2 Mg/Ml Ampul) 0.2 mg IM X1 PRN PRN Reason: Uterine Atony Naloxone HCl (Naloxone 0.4 Mg/Ml Syringe) 0.02 mg IV Q1M PRN PRN Reason: RR <10 and pt unresponsive Naproxen (Naproxen 250 Mg Tablet) 500 mg PO Q8H [facility] Last Admin: 10/09/20 06:26 Dose: 500 mg Documented by: Ondansetron HCl (Ondansetron 4 Mg/2 Ml Vial) 4 mg IV Q4H PRN PRN PRN Reason: Nausea Last Admin: 10/08/20 04:06 Dose: 4 mg Documented by: Oxycodone HCl (Oxycodone 5 Mg Tablet) 5 - 10 mg PO Q4H PRN PRN PRN Reason: Pain Score 4-10 Last Admin: 10/08/20 18:18 Dose: 10 mg Documented by: Multivit/Folic Acid/Iron ( Vits Tablet) 1 tablet PO DAILY@1200 [facility] Last Admin: 10/08/20 12:09 Dose: 1 tablet Documented by: Prochlorperazine Edisylate (Prochlorperazine 10 Mg/2 Ml Vial) 10 mg IV Q6H PRN PRN PRN Reason: NAUSEA Senna/Docusate Sodium (Senna/Docusate Sodium 1 Tablet) 0 tablet PO DAILY [facility] Last Admin: 10/08/20 11:12 Dose: 1 tablet Documented by: Simethicone (Simethicone 80 Mg Tablet) 80 mg PO PCHS PRN PRN Reason: Indigestion/stomach pain Last Admin: 10/08/20 21:49 Dose: 80 mg Documented by: Sodium Chloride (0.9% Saline Lock 10 Ml Syringe) 5 - 15 ml IV UD PRN PRN Reason: SALINE FLUSH Last Admin: 10/08/20 12:09 Dose: 5 ml Documented by: Medical Necessity - Tobacco Use Smoking Status: Never smoker Assessment/Plan All Active Problems (Last Updated 10/07/20 @ 11:03 by Marcela Bueno) Dichorionic diamniotic twin (Acute) (Acute) Supervision of high-risk (Acute) 35 weeks gestation of (Acute) Breech presentation (Acute) Carpal tunnel syndrome (Resolved) GERD (gastroesophageal reflux disease) (Resolved) Gastroenteritis (Resolved) Hypoglycemia (Resolved) Low back problem (Resolved) Mold exposure (Resolved) Twin in first trimester (Resolved) s/p LTCS PPD # 2 1. routine post care 2. breast feeding- support given 3. rh positive 4. rubella immune
[2020-10-09 08:15] VITALS: BP 102/63; PULSE 84; RESP 16; TEMP 36.4; O2SAT 95
[2020-10-09] MEDS: Senna/Docusate Sodium 1 Tablet PO (08:39)
[2020-10-09] MEDS: Prenatal Vits Tablet 1 TABLET PO (08:39)
[2020-10-09 15:06] LABS: Bacteria 0 SEEN /hpf (None Seen); Mucous, Urine 0 SEEN /hpf (<or=2+); White Blood Cells 0 SEEN /hpf (0-5)
[2020-10-09 15:09] LABS: Color, Urine Yellow (Yellow); Glucose, Dipstick Normal (Normal); Ketone-Dipstick Negative (Negative); Leukocyte Esterase-Dipstick Negative /ul (Negative); Nitrite-Dipstick Negative (Negative); Occult Blood-Urine 250 /ul (Negative); Protein-Dipstick Negative (Negative); Urine Bilirubin Dipstick Negative (Negative); Urine Clarity Clear (Clear); Urine Urobilinogen Normal (Normal)
[2020-10-09 15:41] LABS: Red Blood Cells-Urine 0-5 SEEN /hpf (0-5); Squamous Epithelial Cells - UA 0-5 SEEN /hpf (5-10)
[2020-10-09 16:16] VITALS: BP 120/72; PULSE 88; RESP 16; TEMP 36.6; O2SAT 95
== END 2020-10-09 17:10 | disposition home or self-care (01) | DRG 788 ==
PROVIDERS: Admitting Provider Obstetrics & Gynecology; PCP Internal Medicine; Visit Provider Obstetrics & Gynecology
PROC: 10D00Z1 Extraction of Products of Conception, Low, Open Approach (ICD-10-PCS; CPT 59514; principal; 2020-10-07 11:45)
DX: O32.1XX2 Maternal care for breech presentation, fetus 2 (principal); O30.043 Twin pregnancy, dichorionic/diamniotic, third trimester; Z3A.35 35 weeks gestation of pregnancy; Z37.2 Twins, both liveborn; Z77.120 Contact with and (suspected) exposure to mold (toxic)
CPT/HCPCS: 81001; 85025; 85027; 86850; 86900; 86901; 87086; 88307; 99218; J7120; A4216; G0378; J2405

== ENCOUNTER → 2020-10-15 12:46 | Outpatient (CLI) | payer OTHER, SELFPAY | PROVIDERS: PCP Internal Medicine; Referring Provider Obstetrics & Gynecology; Visit Provider Obstetrics & Gynecology | DX: N39.0 Urinary tract infection, site not specified (principal) | CPT/HCPCS: 87077; 87086; 87088; 87186 ==

== ENCOUNTER → 2020-10-25 17:57 | Outpatient (CLI) | payer OTHER, SELFPAY ==
[2020-10-25 14:19] VITALS: BMI 23.7
== END ==
PROVIDERS: PCP Internal Medicine; Visit Provider Obstetrics & Gynecology
DX: R30.0 Dysuria (principal)
CPT/HCPCS: 87086

== ENCOUNTER → 2020-10-29 16:57 | Outpatient (CLI) | payer OTHER, SELFPAY ==
[2020-10-29 16:07] VITALS: BMI 24.1
== END ==
PROVIDERS: PCP Internal Medicine; Referring Provider Obstetrics & Gynecology; Visit Provider Obstetrics & Gynecology
DX: O86.00 Infection of obstetric surgical wound, unspecified (principal)
CPT/HCPCS: 87070; 87205

== ENCOUNTER → 2020-11-17 14:20 | Outpatient (CLI) | payer OTHER, SELFPAY ==
[2020-11-17 10:42] VITALS: BMI 23.8
== END ==
PROVIDERS: PCP Internal Medicine; Visit Provider Obstetrics & Gynecology
DX: R30.0 Dysuria (principal)
CPT/HCPCS: 87086; 87088

== ENCOUNTER 2022-03-13 10:04 | Outpatient (CLI) | payer OTHER, SELFPAY ==
[2022-03-13 11:13] LABS: Absolute Lymphocyte Count 1.63 X10^3/uL (0.83-4.51); Absolute Neutrophil Count 6.6 X10^3/uL (2.0-7.7); Basophil# 0.02 X10^3/uL; Basophil% 0.2 % (0-1); Eosinophil# 0.03 X10^3/uL; Eosinophils% 0.3 % (0-5); Hematocrit 39.6 % (37-47); Hemoglobin 13.8 g/dL (12.0-15.0); Lymphocyte # 1.63 X10^3/ul (0.83-4.51); Lymphocyte % 18.8 % (19-41); Mean Corp Hgb Conc 34.8 g/dL (32-36); Mean Corpuscular Hgb 30.3 pg (27.0-32.0); Mean Corpuscular Volume 86.8 fL (81-99); Mean Platelet Vol. 10.2 fl (6.2-12.0); Monocyte% 4.6 % (0-10); NRBC Flagged by Analyzer 0 % (0-5); Neutrophil # 6.57 X10^3/uL (2.7-7.7); Platelet Count 244 K/mm3 (150-450); RBC Distribution Width CV 12.1 % (11.6-14.6); RBC Distribution Width SD 38.7 fl (35.1-43.9); Red Blood Count 4.56 M/mm3 (4.2-5.4); White Blood Count 8.7 K/mm3 (4.4-11.0)
[2022-03-13 12:01] LABS: Amphetamine Urine VISTA NEGATIVE (<1000 ng/mL); Barbiturate Urine VISTA NEGATIVE (< 200 ng/mL); Benzodiazepine Urine VISTA NEGATIVE (< 200 ng/mL); Cocaine Urine VISTA NEGATIVE (< 300 ng/mL); Ecstacy Urine VISTA NEGATIVE (< 500 ng/mL); Methadone Urine VISTA NEGATIVE (< 300 ng/mL); PCP Urine VISTA NEGATIVE (< 25 ng/mL); THC Urine VISTA NEGATIVE (< 50 ng/mL); Vista UDS pH Range 7
[2022-03-13 12:12] LABS: HIV - WCH Non-Reactive (Nonreactive); Hepatitis B Surface Antigen Non-Reactive (Nonreactive); Hepatitis C Antibody Non-Reactive (Nonreactive); Rubella IgG Reactive (Nonreactive); Syphilis Antibodies Non-reactive
[2022-03-15 05:07] LABS: Chlamydia By Nucleic Acid AMP Negative (Negative)
[2022-03-15 08:28] LABS: Gonococcus By Nucleic Acid AMP Negative (Negative)
[2022-03-17 16:11] LABS: HPV Reflexed? NOT INDICATED
== END 2022-03-13 23:59 | disposition home or self-care (01) ==
LOC: LAB 10:07
PROVIDERS: PCP Internal Medicine; Referring Provider Obstetrics & Gynecology; Visit Provider Obstetrics & Gynecology
DX: Z34.90 Encounter for supervision of normal pregnancy, unspecified, unspecified trimester (principal)
CPT/HCPCS: 36415; 80307; 85025; 86703; 86762; 86780; 86803; 86850; 86900; 86901; 87077; 87086; 87088; 87186; 87340; 87491; 87591; 88175; G0145

== ENCOUNTER → 2022-06-08 | Outpatient (CLI) | payer OTHER, SELFPAY ==
--- NOTE | 2022-06-08 08:10 | US_ITS ---
STUDY: SECOND AND THIRD TRIMESTER OBSTETRICAL ULTRASOUND REASON FOR EXAM: Female, 26 years old anatomy LMP: 01/13/2022. TECHNIQUE: Transabdominal and Transvaginal TECHNICAL QUALITY: Adequate. PRIOR ULTRASOUND: None. FINDINGS: There is a single intrauterine fetus. The fetus is in a cephalic presentation. There is demonstrated cardiac activity with a heart rate of 158 bpm. There is a normal amniotic fluid volume. The largest amniotic fluid pocket measures 3.9 cm. The amniotic fluid index (NADIR) is within normal limits. The placenta is anterior in location and is not low lying. The umbilical cord inserts at 3.8 cm from the edge of the placenta. There are Grade 1 placental changes. The cervix measures 4.4 cm in length. The bilateral adnexal regions are normal. BIOMETRY: BPD: 4.9 cm: 20 weeks, 5 days HC: 18.4 cm: 20 weeks, 5 days AC: 15.4 cm: 20 weeks, 3 days FL: 3.5 cm: 20 weeks, 5 days CI: 78% FL/BPD: 71% FL/HC: FL/AC: 22% HC/AC: 1.2 age by current US: 20 weeks, 5 days. WILLIAM by current US: 10/21/2022. Estimated weight: 372 grams, +/- 56 grams, 37 %. Age by LMP: 20 weeks, 6 days. WILLIAM by LMP: 10/20/2022. ANATOMY: Gender: Male Cranium: Normal lateral ventricles. Normal choroid plexus. Normal cerebellum. Normal cisterna magna. Normal face, nose and lips. Chest: Normal 4-chamber heart. Abdomen/Pelvis: Normal diaphragm. Normal stomach. Normal abdominal wall. The umbilical cord insertion is at 3.8 sinus from the edge of the superior portion of the placenta. Normal 3 vessel cord. Normal kidneys. Normal bladder. Spine: Normal cervical spine. Normal thoracic spine. Normal lumbar spine. Normal sacrum. Limited longitudinal views of the spine due to positioning. Extremities: Normal bilateral upper extremities. Normal bilateral lower extremities. IMPRESSION: Single live intrauterine gestation with a mean gestational age of 20 weeks and 5 days. The placental cord insertion is at 3.8 cm from the edge of the placenta. Limited longitudinal views of the spine due to positioning. Electronically Signed: Isaias Major MD at 10:27 EDT , STUDY: FIRST TRIMESTER OBSTETRICAL ULTRASOUND REASON FOR EXAM: Female, 26 years old . Cervical length. LMP: 01/13/2022 TECHNIQUE: Transvaginal TECHNICAL QUALITY: Adequate. PRIOR ULTRASOUND: None. FINDINGS: Cervical length measures 4.4 cm. US/OB Anatomy Scan IMPRESSION: Cervical length measures 4.4 cm. Electronically Signed: Isaias Major MD at 10:27 EDT ,
== END | disposition home or self-care (01) ==
PROVIDERS: PCP Internal Medicine; Referring Provider Obstetrics & Gynecology; Visit Provider Obstetrics & Gynecology
DX: Z34.90 Encounter for supervision of normal pregnancy, unspecified, unspecified trimester (principal)
CPT/HCPCS: 76805; 76817

== ENCOUNTER → 2022-06-09 | Outpatient (CLI) | payer OTHER, SELFPAY | END | disposition home or self-care (01) | LOC: LAB 11:06 → PAVLAB 11:19 | PROVIDERS: PCP Internal Medicine; Referring Provider Obstetrics & Gynecology; Visit Provider Obstetrics & Gynecology | DX: Z36.9 Encounter for antenatal screening, unspecified (principal) | CPT/HCPCS: 36415 ==

== ENCOUNTER → 2022-07-04 | Outpatient (CLI) | payer OTHER, SELFPAY ==
[2022-07-04 10:38] LABS: Absolute Lymphocyte Count 1.42 X10^3/uL (0.83-4.51); Absolute Neutrophil Count 9.3 X10^3/uL (2.0-7.7); Basophil# 0.02 X10^3/uL; Basophil% 0.2 % (0-1); Eosinophil# 0.04 X10^3/uL; Eosinophils% 0.4 % (0-5); Hematocrit 37.5 % (37-47); Hemoglobin 12.9 g/dL (12.0-15.0); Lymphocyte # 1.42 X10^3/ul (0.83-4.51); Lymphocyte % 12.6 % (19-41); Mean Corp Hgb Conc 34.4 g/dL (32-36); Mean Corpuscular Hgb 31.2 pg (27.0-32.0); Mean Corpuscular Volume 90.8 fL (81-99); Mean Platelet Vol. 9.8 fl (6.2-12.0); Monocyte# 0.42 X10^3/uL; Monocyte% 3.7 % (0-10); NRBC Flagged by Analyzer 0 % (0-5); Neutrophil # 9.25 X10^3/uL (2.7-7.7); Neutrophil % 82.3 % (47-70); Platelet Count 210 K/mm3 (150-450); RBC Distribution Width CV 13.2 % (11.6-14.6); RBC Distribution Width SD 43.4 fl (35.1-43.9); Red Blood Count 4.13 M/mm3 (4.2-5.4); White Blood Count 11.2 K/mm3 (4.4-11.0)
[2022-07-04 11:05] LABS: Glucose Challenge Gest 1H 50g 78 mg/dL (70-140)
== END | disposition home or self-care (01) ==
LOC: LAB 10:12
PROVIDERS: PCP Internal Medicine; Visit Provider Obstetrics & Gynecology
DX: Z13.1 Encounter for screening for diabetes mellitus (principal); Z34.90 Encounter for supervision of normal pregnancy, unspecified, unspecified trimester
CPT/HCPCS: 36415; 82950; 85025

== ENCOUNTER → 2022-10-12 | Outpatient (CLI) | payer OTHER, SELFPAY ==
[2022-10-12 16:10] LABS: Bacteria 0 SEEN /hpf (None Seen); Mucous, Urine 0 SEEN /hpf (<or=2+); Red Blood Cells-Urine 0 SEEN /hpf (0-5); White Blood Cells 0 SEEN /hpf (0-5)
[2022-10-12 16:13] LABS: Color, Urine Yellow (Yellow); Glucose, Dipstick Normal (Normal); Ketone-Dipstick Negative (Negative); Leukocyte Esterase-Dipstick Negative /ul (Negative); Nitrite-Dipstick Negative (Negative); Occult Blood-Urine Negative /ul (Negative); Protein-Dipstick Negative (Negative); Specific Gravity, Urine 1.015 (1.002-1.030); Urine Bilirubin Dipstick Negative (Negative); Urine Clarity Sl. Cloudy (Clear); Urine Urobilinogen Normal (Normal)
[2022-10-12 16:20] LABS: Squamous Epithelial Cells - UA 0-5 SEEN /hpf (5-10)
[2022-10-12 16:21] LABS: Amorphous Sediment 1+ PHOS
== END | disposition home or self-care (01) ==
LOC: LABSPEC 16:05
PROVIDERS: PCP Internal Medicine; Referring Provider Registered Nurse; Visit Provider Registered Nurse
DX: R30.0 Dysuria (principal)
CPT/HCPCS: 81001; 87086; 87088

== ENCOUNTER 2022-10-24 18:02 | Inpatient (IN) | payer OTHER, SELFPAY ==
[2022-10-24] VITALS (9 sets, daily range): BP systolic 107–131; BP diastolic 61–80; PULSE 88–115; TEMP 36.3–37.2; O2SAT 97–98; BMI 27.9
[2022-10-24] MEDS: Lactated Ringers 1,000 ML 50 ML IV (18:30)
[2022-10-24 19:09] LABS: Absolute Lymphocyte Count 1.45 X10^3/uL (0.83-4.51); Basophil# 0.03 X10^3/uL; Basophil% 0.2 % (0-1); Eosinophil# 0.04 X10^3/uL; Eosinophils% 0.3 % (0-5); Hematocrit 40.5 % (37-47); Hemoglobin 14.2 g/dL (12.0-15.0); Lymphocyte # 1.45 X10^3/ul (0.83-4.51); Lymphocyte % 10.1 % (19-41); Mean Corp Hgb Conc 35.1 g/dL (32-36); Mean Corpuscular Hgb 32.1 pg (27.0-32.0); Mean Corpuscular Volume 91.6 fL (81-99); Monocyte# 0.71 X10^3/uL; NRBC Flagged by Analyzer 0 % (0-5); Neutrophil # 11.96 X10^3/uL (2.7-7.7); Neutrophil % 83.5 % (47-70); Platelet Count 192 K/mm3 (150-450); RBC Distribution Width CV 14.6 % (11.6-14.6); RBC Distribution Width SD 49.1 fl (35.1-43.9); Red Blood Count 4.42 M/mm3 (4.2-5.4); White Blood Count 14.3 K/mm3 (4.4-11.0)
--- NOTE | 2022-10-24 20:25 | HP.PCM.OB_ITS ---
HPI - General General Date of Admission: 10/24/22 HPI Narrative DONA MCDANIEL, is a 27 y/o who presents to L&D with contractions every 3 minutes and has made cervical change from the office today at 2 cm. She was stripped by Connie Gonzalez in hopes to get labor started. She has a h/o one prior section at 38 weeks for twin gestation and wants to . She was counseled extensively on the risks, benefits, and alternatives to TOLAC. her chance of success is 75%. However, she is declining AROM, epidural placement, and internal monitors at this time. Further discussion will take place to discuss the importance of some of these things. Maternal Data Information WILLIAM Calculator Estimated Delivery Date Method Current WG Current Estimate 10/20/22 LMP (Certain) 40w 4d PFSH PFSH Medical History Carpal tunnel syndrome GERD (gastroesophageal reflux disease) Hypoglycemia Low back problem Mold exposure Positive GBS test Seasonal allergies Home Medications vits,calcium no.78-iron fumarate-folic acid 29 mg-1 mg tablet 1 tab PO DAILY Check with primary doctor 09/08/20 [History Last Taken 10/24/22] Allergy/AdvReac Type Severity Reaction Status Date / Time No Known Allergies Allergy Verified 10/24/22 09:31 Family History Father Hypertension Grandfather Parkinson disease Grandmother CVA (cerebral vascular accident) Mother Thyroid disorder Surgical History (Updated 10/24/22 @ 19:04 by Sheila Marinelli) S/P primary low transverse [place] teeth removed Social History adopted: No household members: spouse and children housing: house current occupational status: employed 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, [employer]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: Yes (rehoming cat soon) pets and animals: cat(s) history of recent travel: No sexually active: Yes Smoking Status: Never smoker second hand exposure: No alcohol intake: current alcohol intake frequency: a few times a month details: not while substance use type: does not use caffeine: No what type of physical activity do you participate in: none and walking seatbelt use: always do you feel safe at home: Yes additional social history: [employer] 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 Date Name GA/Weeks Outcome Route Bth Weight Infant Gen Labor Lgth Anesthesia Del Locatn Provider FOB 10/07/20 Timur 38 live - full term Male [facility] Nancy 10/07/20 Soha 38 live - full term Female [facility] Nancy Delivery Date: 10/07/20 Last Updated by: Sarah Bauer [facility] twins a vertex b breech Visit Details Expected Delivery Route/Plan TOLAC patient counseled regarding risks/benefits of trial of labor versus repeat . ACOG/uptodate education given to patient. 75% likelihood of success per calculator TOLAC consent form signed:completed prefers to limit cervical exams unless clinically indicated Labor Preferences- CB/BF classes: signed up, participating in just breathe classes as well labor support person: labor intervention preferences: minimal intervention, prefers to not use internal monitoring unless required. pain management options preferred: unmedicated cut cord/dad catch:yes :planned PP control planned: potential vasectomy discussed possible routes of delivery and associated risks: [] special requests: would like Connie present Plans Covid status: discussed Flu vaccine: discussed Tdap vaccine: declines Rhogam: n/a LARC form signed:reviewed and signed Problem list reviewed and updated with the most current plan of care details and appropriate orders placed. Relevant counseling for the gestational age provided. Continue routine care and follow up unless otherwise noted in visit notes/problem list details OB Flowsheet Initial Weight: 119 lb Date -?-?-?-?-?-?-?-?-?-?-?-?- EGA Weight BP Urine Prot -?-?-?-?-?-?-?-?-?-?-?-?- Glucose FHR FuHt Pres Dilation -?-?-?--?-?-?-?-?-?-?-?-?- Effaced St Visit Note 03/13/22 -?-?-?-?-?-?-?-?-?-?-?-?- 8w 3d 119 lb 8 oz (+8 oz) 118/70 -?-?-?-?-?-?-?-?-?-?-?-?- 170 -?-?-?-?-?-?-?-?-?-?-?-?- SM- CRL 2 cm con s with LMP 04/14/22 -?-?-?-?-?-?-?-?-?-?-?-?- 13w 0d 119 lb 6 oz (+6 oz) 110/60 Negative -?-?-?-?-?-?-?-?-?-?-?-?- Negative 153 -?-?-?-?-?-?-?-?-?-?-?-?- JV- CRL consiste nt with GA today. NO complaints. anatomy scan ordered 05/12/22 -?-?-?-?-?-?-?-?-?-?-?-?- 17w 0d 122 lb (+3 lb) 122/70 Negative -?-?-?-?-?-?-?-?-?-?-?-?- Negative 150 -?-?-?-?-?-?-?-?-?-?-?-?- SM- no vb lof no regular ctx 06/09/22 -?-?-?-?-?-?-?-?-?-?-?--?- 21w 0d 127 lb 6 oz (+8 lb 6 oz) 110/58 Negative -?-?-?-?-?-?-?-?-?-?-?-?- Negative 150 -?-?-?-?-?-?-?-?-?-?-?-?- SM- no vb lof go od fm no regular ctx. signficant discussion about TOLAC, delivery prior to 41 weeks, and velamentous cord insertion 07/04/22 -?-?-?-?-?-?-?-?-?-?-?-?- 24w 4d 133 lb (+14 lb) 116/58 Negative -?-?-?-?-?-?-?-?-?-?-?-?- Negative 140 24 -?-?-?-?-?-?-?-?-?-?-?-?- SM- no vb lof go od fm no regular ctx. discussion that would provide expectant management up until 41 weeks and then would reocmmend either RLTCS or IOL. discussed with Dr Waite previously who also agreed with the plan. 07/25/22 -?-?-?-?-?-?-?-?-?-?-?-?- 27w 4d 138 lb (+19 lb) 120/84 Negative -?-?-?-?-?-?-?-?-?-?-?-?- Negative 145 27 -?-?-?-?-?-?-?-?-?-?-?-?- SM- no vb lof go od fm no regular ctx 08/10/22 -?-?-?-?-?-?-?-?-?-?-?-?- 29w 6d 140 lb 6 oz (+21 lb 6 oz) 118/78 Negative -?-?-?-?-?-?-?-?-?-?-?-?- Negative 128 29 -?-?-?-?-?-?-?-?-?-?-?-?- LC- no vb,lof,ct x.+FM. LARC signed. LC- no vb,lof,ctx.+FM. LARC signed. control reviewed. 08/22/22 -?-?-?-?-?-?-?-?-?-?-?-?- 31w 4d 143 lb (+24 lb) 107/69 107/69 Trace -?-?-?-?-?-?-?-?-?-?-?-?- Negative 140 32 -?-?-?-?-?-?-?-?-?-?-?-?- LC-no vb, lob, c tx. active fetus. +sciatic pain, using chiropractor, reviewed stretching tech. 09/06/22 -?-?-?-?-?-?-?-?-?-?-?-?- 33w 5d 147 lb (+28 lb) 116/72 -?-?-?-?-?-?-?-?-?-?-?-?- 145 33 Cephalic -?-?-?-?-?-?-?-?-?-?-?-?- LC- no vb,lof,ct x. good FM. risk and benefits reviewed, consent obtained. 09/21/22 -?-?-?-?-?-?-?-?-?-?-?-?- 35w 6d 146 lb (+27 lb) 132/77 -?-?-?-?-?-?-?-?-?-?-?-?- 140 35 Cephalic -?-?-?-?-?-?-?-?-?-?-?-?- Lc- no lof,vb,ct x. good FM. reviewed up until 41 weeks in our practice. denies headaches, epigastric pain, visual changes. Lc- no lof,vb,ctx. good FM. reviewed up until 41 weeks in our practice. denies headaches, epigastric pain, visual changes. normal cord insertion on ultrasound. trace protein/ negative glucose- concentrated urine. enc PO hydration. 09/29/22 -?-?-?-?-?-?-?-?-?-?-?-?- 37w 0d 152 lb 8 oz (+33 lb 8 oz) 125/66 Negative -?-?-?-?-?-?-?-?-?-?-?-?- Negative 145 35 Cephalic -?-?-?-?-?-?-?-?-?-?-?-?- JV- no lof, vagi nal bleeding, or dec fm, pt requested rpt GBS test. I explained that to her that with a pos gbs in urine, it means that she is super colonized and if we swab and by chance it comes back negative due to lack of sample, it will confuse our treatment process and the baby could be at risk if under treated. declines pelvic exam. 10/05/22 -?-?-?-?-?-?-?-?-?-?-?-?- 37w 6d 155 lb 4 oz (+36 lb 4 oz) 114/75 114/75 Negative -?-?-?-?-?-?-?-?-?-?-?-?- Negative 138 37 Cephalic -?-?-?-?-?-?-?-?-?-?-?-?- LC-no lof,vb,ctx . good fm. declines pelvic exam today. reviewed risk and benefits of membrane sweeps for more favorable cervix. 10/10/22 -?-?-?-?-?-?-?-?-?-?-?-?- 38w 4d 159 lb 2 oz (+40 lb 2 oz) 113/68 Negative -?-?-?-?-?-?-?-?-?-?-?-?- Negative 145 38 Cephalic -?-?-?-?-?-?-?-?-?-?-?-?- LC- no lof,vb,ct x. good fm. feeling well, denies concerns. declines pelvic exam today 10/12/22 -?-?-?-?-?-?-?-?-?-?-?-?- 38w 6d 108/62 108/62 Negative -?-?-?-?-?-?-?-?-?-?-?-?- Negative 140 39 -?-?-?-?-?-?-?-?-?-?-?-?- LC- increase bur karen with urination. negative dip. will send uc as pt hx of normal dip with +culture. +fm, neg ctx,lof,vb. 10/17/22 -?-?-?-?-?-?-?-?-?-?-?-?- 39w 4d 160 lb (+41 lb) 129/68 Negative -?-?-?-?-?-?-?-?-?-?-?-?- Negative 145 40 Cephalic 1 -?-?--?-?-?-?-?-?-?-?-?-?- 30 -3 LC-no vb.c tx.lof. good fm. membrane sweep today. cervix soft. 10/24/22 -?-?-?-?-?-?-?-?-?-?-?-?- 40w 4d 158 lb 8 oz (+39 lb 8 oz) 127/80 127/80 Negative -?-?-?-?-?-?-?-?-?-?-?-?- Negative 140 Cephalic 2 -?-?-?-?-?-?-?-?-?-?-?-?- 60 -2 LC-no vb,l of. occ ctx, nothing consistent. good fm. membrane swept today, soft cervix. risk and benefit for IOL reviewed. consent obtained. scheduled for 7am on sunday. 10/24/22 -?-?-?-?-?-?-?-?-?-?-?-?- 40w 4d 157 lb 12.8 oz (+38 lb 12.8 oz) 131/80 120/74 107/61 -?-?-?-?-?-?-?-?-?-?-?-?- -?-?-?-?-?-?-?-?-?-?-?-?- 10/26/22 -?-?-?-?-?-?-?-?-?-?-?-?- 40w 6d -?-?-?-?-?-?-?-?-?-?-?-?- -?-?-?-?-?-?-?-?-?-?-?-?- ROS Constitutional Constitutional: Denies change in weight, fatigue, fever(s), headache(s), poor appetite or weakness Eyes Eyes: Denies blurry vision, change in vision, seeing flashes or spots in vision ENT HEENT: Denies dizziness, headache(s), loss taste/smell or sore throat Cardiovascular Cardiovascular: Denies chest pain, dizziness, dyspnea, irregular heart rhythm, leg edema, palpitations, rapid heart rate or vomiting Respiratory/Chest Respiratory/Chest: Denies chest tightness, cough, dyspnea or breast pain Gastrointestinal Gastrointestinal: Denies abdominal pain, anorexia, constipation, cramping, diarrhea, hemorrhoids, vomiting or weight changes Genitourinary Genitourinary: Denies dysuria, flank pain, genital lesions, genital pain, urinary frequency or urinary urgency Musculoskeletal Musculoskeletal: Denies back pain, difficulty walking, joint pain, limited range of motion, muscle cramps or numbness Integumentary Integumentary: Denies lesions or unusual bruising Neurologic Neurologic: Denies abnormal movements, abnormal speech, dizziness, numbness, seizure-like activity or syncope Psychiatric Psychiatric: Denies anxiety, behavioral changes, change in appetite, change in libido, cognitive impairment, confusion, depression, difficulty concentrating, hallucinations or suicidal thoughts Endocrine Endocrinology: Denies excessive sweating, polydipsia or polyuria Hematologic/Lymphatic Hematologic/Lymphatic: Denies easy bleeding, easy bruising or lymphadenopathy Allergic/Immunologic Allergic/Immunologic: Denies itchy eyes, lip swelling, seasonal rhinorrhea, rhinitis, throat swelling, tongue swelling, eczemia, wheezing or asthma Vital Signs Vital Signs Vital Signs: 10/24/22 17:52 10/24/22 17:52 10/24/22 17:52 Temperature Temperature Source Temporal Pulse Rate 94 Blood Pressure 131/80 H BP Systolic 131 BP Diastolic 80 Pulse Ox 10/24/22 17:53 10/24/22 17:53 10/24/22 17:52 Temperature 97.4 F L Temperature Source Pulse Rate 102 H Blood Pressure BP Systolic BP Diastolic Pulse Ox 98 10/24/22 19:19 10/24/22 19:19 10/24/22 19:19 Temperature Temperature Source Pulse Rate 115 H Blood Pressure 120/74 BP Systolic 120 BP Diastolic 74 Pulse Ox 98 10/24/22 19:19 10/24/22 19:19 Temperature 98.9 F Temperature Source Temporal Pulse Rate Blood Pressure BP Systolic BP Diastolic Pulse Ox Weight Weight: 157 lb 12.8 oz Body Mass Index (BMI) 27.9 Physical Exam Const alert, oriented x3, no apparent distress and healthy appearing General Appearance: cooperative; Negative for anxious HEENT normocephalic Face and Sinus: normal facial exam Eyes EOMs intact bilaterally and no scleral icterus General Eye: normal appearance of both eyes Neck full ROM and supple Lymph Lymphatic: no lymphadenopathy noted Chest Chest: abnormal inspection of the chest Resp normal respiratory effort Effort and Inspection: able to speak in complete sentences Cardio regular rate GI soft to palpation and non-tender Inspection: gravid Palpation: soft; Negative for tender Back/Spine no CVA tenderness Extremity normal to inspection, full ROM and no clubbing, cyanosis or edema General Extremity: Negative for calf tenderness or edema Skin Lesions: no lesions Rashes: no rashes Psych mental status grossly normal Labs Labs Labs: Blood Type O POSITIVE Antibody Screen NEGATIVE Hct 40.5 % (37-47) Hgb 14.2 g/dL (12.0-15.0) Obstetrics US Syphilis Total Ab Non-reactive VZV IgG Antibody > 4000 index (Immune >165) Rubella IgG Antibody Reactive (Nonreactive) Hep Bs Antigen Non-Reactive (Nonreactive) Chlamydia DNA (KARUNA) Negative (Negative) Neisseria gonorrhoeae DNA (KARUNA) Negative (Negative) HIV 1&2 Antibody Non-Reactive (Nonreactive) Glucose 1 Hr 50 gm 78 mg/dL (70-140) Rhogam given: No Miscellaneous Test Assessment & Plan (1) : QUALIFIERS: Weeks of gestation: 37 weeks Qualified Code(s): Z3A.37 - 37 weeks gestation of COMMENT: declined genetic and carrier screening encouraged. afp screening. anatomy reviewed, nl1 hr GCT 07/04 (2) Supervision of normal : QUALIFIERS: Trimester: third trimester COMMENT: PRR WILLIAM 10/20/22 surprise NATHAN Rock, Spouse: Toñito (3) History of delivery: COMMENT: plan TOLAC, LTCS prior for twins malpresentation. (4) Dysuria: COMMENT: negative urine culture. symptoms improved. (5) Positive GBS test: COMMENT: +GBS in urine 1st trimester-treat in labor PLAN: Plan patient counseled regarding risks/benefits of trial of labor versus repeat . ACOG/uptodate education given to patient. 75 % likelihood of success per calculator TOLAC consent form signed
--- NOTE | 2022-10-24 22:36 | PCM.PN.OB ---
Objective Data Objective Data Vital Signs: Vital Signs Temp Pulse BP Pulse Ox 98.1 F 102 H 123/69 H 97 10/24/22 22:32 10/24/22 22:33 10/24/22 22:33 10/24/22 22:31 Weight: 157 lb 12.8 oz Body Mass Index (BMI) 27.9 Intake & Output: Intake and Output for Last 24 Hours 10/22/22 10/23/22 10/24/22 23:59 23:59 23:59 Intake Total 192.5 / 192.5 Balance 192.5 / 192.5 Lab / Micro Data Result Diagrams: 10/24/22 18:40 Labs: Laboratory Results - last 24 hr 10/24/22 18:40: WBC 14.3 H, RBC 4.42, Hgb 14.2, Hct 40.5, MCV 91.6, MCH 32.1 H, MCHC 35.1, RDW Std Deviation 49.1 H, RDW Coeff of [place] 14.6, Plt Count 192, MPV 10.0, Immature Gran % (Auto) 0.900, Neut % (Auto) 83.5 H, Lymph % (Auto) 10.1 L, [place] % (Auto) 5.0, Eos % (Auto) 0.3, Baso % (Auto) 0.2, Absolute Neuts (auto) 12.0 H, Absolute Lymphs (auto) 1.45, Nucleated RBC % 0 10/24/22 18:40: Blood Type O POSITIVE, Antibody Screen NEGATIVE NST FHR Rate Baby A Baseline: 135 Variability:: Moderate Accelerations:: 15 x 15 Decelerations:: Variable NST Reactive:: Yes FHR Category:: Category II Uterine Activity:: q2-3 Assessment & Plan (1) : QUALIFIERS: Weeks of gestation: 37 weeks Qualified Code(s): Z3A.37 - 37 weeks gestation of COMMENT: declined genetic and carrier screening encouraged. afp screening. anatomy reviewed, nl1 hr GCT 07/04 (2) Supervision of normal : QUALIFIERS: Trimester: third trimester COMMENT: PRR WILLIAM 10/20/22 surprise NATHAN [place], Spouse: Toñito (3) History of delivery: COMMENT: plan TOLAC, LTCS prior for twins malpresentation. (4) Positive GBS test: COMMENT: +GBS in urine 1st trimester-treat in labor PLAN: Plan at 40.4 TOLAC, now 5cm/90/-2 current tracing: occ variable with quick return to baseline FHT: Moderate variability reactive cat 2 tracing with return to cat 1 [place]: q2-3 Contractions reviewed tracing abnormalities since last note: reviewed with Dr. Waite. A/P: at 40.4 in active labor. pain management per request AROM PRN GBS positive- on PCN, adequately treated Dr. Waite updated and remains in house.
[2022-10-24] MEDS: Penicillin G 3,000,000 Units 50 ML 100 UNITS IV (22:41)
[2022-10-25] VITALS (38 sets, daily range): BP systolic 101–128; BP diastolic 59–79; PULSE 75–123; RESP 16; TEMP 36.2–36.8; O2SAT 95–99
[2022-10-25] MEDS: Oxytocin 10 UNITS/ML Vial IM (02:17)
--- NOTE | 2022-10-25 02:36 | EX.PCM.OBRPT ---
Assessment & Plan (1) , delivered: COMMENT: 40.4 IAL , unmedicated boy LC PLAN: routine pp care Maternal Data Information WILLIAM Calculator Estimated Delivery Date Method Current WG Current Estimate 10/20/22 LMP (Certain) 40w 5d Vaginal Delivery Maternal Presentation Maternal Presentation: Active Labor Operative Information Date of Procedure: 10/25/22 Pre-Operative Diagnosis: IAL Post-Operative Diagnosis: Surgery / Procedure Performed: Spontaneous Vaginal Delivery Type of Anesthesia: Local with 1% Lidocaine Estimated Blood Loss: 400 Time of Delivery: 01:56 Findings Description of Procedure: Patient began pushing and delivered the head in the SAMANTHA presentation. The head was delivered atraumatically . The anterior and posterior shoulders delivered without complication followed by the rest of the and the was placed on the maternal abdomen. Delayed cord clamping was employed for approximately 60 seconds. Cord was clamped and cut and gentle traction was applied to the cord and the placenta delivered spontaneously immediately following it was noted to be intact with three-vessel cord. The perineum and vagina were inspected and noted to have 1st degree laceration. EBL was 400ml. Patient and tolerated delivery well. Presentation: SAMANTHA Amniotic Membrane Rupture Type: Spontaneous Time of Membrane Rupture: 0100 Amniotic Fluid Description: Clear Placental Delivery Description: Spontaneous Placenta Disposition: [facility] Cord Vessel Description: 3 Vessels Cord Entanglement: None Nuchal Cord Compression: Without compression A Gender: Male (1 minute): 9 (5 minute): 9 Delayed Cord Clamping: Yes Post Vaginal Delivery Episiotomy Description: None Laceration: 1st degree Complication Complications: None Procedures Urinary/Genital [id number]: 12900 delivery global pkg (CNM delivery, attjackie vega)
--- NOTE | 2022-10-25 02:45 | DCINST_ITS ---
Discharge Instructions Diet Discharge Diet: No restrictions Activity Discharge Activity: May Not Drive and May Shower May resume sexual activity in: 6 weeks Weight Bearing Status: Full weight bearing Dressing / Incision Call your doctor if your incision/area has: Sudden Increased Bleeding, Increased Pain/ Swelling and Foul Smelling Discharge Call your doctor if you observe: Fever of 101 or Higher, Numbness or Tingling, Change in Color, Inability to urinate, Inability to have a bowel movement, Using more than 1 pad per hour, Shortness of breath, Dizziness, Fainting spells, Chest pain, Calf discomfort and Uncontrolled pain Follow Up Care Please Follow Up With: Connie Gonzalez CNM When: 6 weeks , please call office to make an appointment. Congratulations on the of your melissa baby boy!!! Test Results: Test results from this visit will be discussed in further detail at your follow- up appointment, if applicable. Discharge Plan Admission Admit Date/Time: 10/24/22 18:02 Attending Provider: Connie Gonzalez Primary Care Provider: Janee López Discharge Orders/Prescriptions Prescriptions: No Action vit,[id number] 1 TABLET tablet 1 tab PO DAILY Referrals / Follow Up: Janee López MD [Primary Care Provider] - Disposition Disposition (needs filled in before D/C Order can be placed): Home, Self Care
[2022-10-25] MEDS: Benzocaine/Lanolin/Aloe Vera 1 SPRAY EACH TOPICAL (19:16)
[2022-10-26 00:20] VITALS: BP 114/61; PULSE 89
[2022-10-26 00:24] VITALS: BP 114/61; PULSE 89; RESP 18; TEMP 36.4; O2SAT 97
[2022-10-26 02:55] VITALS: BP 104/58; PULSE 84; RESP 16; TEMP 36.6; O2SAT 98
[2022-10-26 03:01] VITALS: BP 107/58; PULSE 83
[2022-10-26 03:02] VITALS: BP 104/58; PULSE 83
[2022-10-26 07:30] VITALS: BP 111/61; PULSE 101; PULSE 90; PULSE 97; RESP 18; TEMP 36.2; O2SAT 97
--- NOTE | 2022-10-26 07:52 | PCM.PN.OB ---
Subjective Subjective Patient doing well without complaints. Tolerating PO. Ambulating and voiding without difficulty. feeding well. Denies chest pain, shortness of breath, calf pain/swelling, fevers, chills, lightheadedness. Objective Data Objective Data Vital Signs: Vital Signs Temp Pulse Resp BP Pulse Ox O2 Del Method 97.2 F L 97 18 111/61 97 Room Air 10/26/22 07:30 10/26/22 07:30 10/26/22 07:30 10/26/22 07:30 10/26/22 07:30 10/26/22 07:30 Oxygen Delivery Method Room Air Weight: 157 lb 12.8 oz Body Mass Index (BMI) 27.9 Intake & Output: Intake and Output for Last 24 Hours 10/24/22 10/25/22 10/26/22 23:59 23:59 23:59 Intake Total 242.5 / 242.5 Output Total 500 / 500 Balance 242.5 / 242.5 -500 / -500 Lab / Micro Data Result Diagrams: 10/24/22 18:40 ROS Constitutional Constitutional: Reports systems reviewed and no addt'l complaints, except as documented Cardiovascular Cardiovascular: Reports systems reviewed and no addt'l complaints, except as documented Respiratory/Chest Respiratory/Chest: Reports systems reviewed and no addt'l complaints, except as documented Gastrointestinal Gastrointestinal: Reports systems reviewed and no addt'l complaints, except as documented Physical Exam Const alert, oriented x3 and no apparent distress HEENT Head and Scalp: atraumatic Resp normal respiratory effort GI soft to palpation and non-tender Bimanual Exam - Vag & Uterus: uterus non-tender Uterus Palpation: uterus fundus firm (below Umbilicus) Assessment & Plan (1) , delivered: COMMENT: 40.4 IAL , unmedicated boy PLAN: Plan s/p PPD # 1 1. routine post delivery care 2. breast feeding- support given 3. rh positive 4. rubella immune
== END 2022-10-26 10:00 | disposition home or self-care (01) | DRG 807 ==
LOC: WPOUT 18:04 → WP 18:04
PROVIDERS: Obstetrics & Gynecology; Admitting Provider Registered Nurse; PCP Internal Medicine; Visit Provider Registered Nurse
DX: O69.2XX0 Labor and delivery complicated by other cord entanglement, with compression, not applicable or unspecified (principal); Z37.0 Single live birth; O34.211 Maternal care for low transverse scar from previous cesarean delivery; O99.824 Streptococcus B carrier state complicating childbirth; O70.0 First degree perineal laceration during delivery; Z3A.37 37 weeks gestation of pregnancy
CPT/HCPCS: 59025; 59050; 85025; 86850; 86900; 86901; 99218; J7120; G0378

== ENCOUNTER → 2022-12-27 | Outpatient (CLI) | payer OTHER, SELFPAY ==
[2022-12-27 13:08] LABS: Free T3 2.8 pg/mL (2.18-3.98); T4 Free Direct 0.96 ng/dL (0.76-1.46); Thyroid Stim Hormone (TSH) 1.01 uIU/mL (0.358-3.74)
== END | disposition home or self-care (01) ==
LOC: LAB 11:36
PROVIDERS: PCP Internal Medicine; Visit Provider Registered Nurse
DX: O99.345 Other mental disorders complicating the puerperium (principal); F41.8 Other specified anxiety disorders
CPT/HCPCS: 36415; 84439; 84443; 84481

== ENCOUNTER → 2024-06-05 | Outpatient (CLI) | payer OTHER, SELFPAY | END | disposition home or self-care (01) | PROVIDERS: PCP Internal Medicine; Visit Provider Physician Assistant | DX: J02.9 Acute pharyngitis, unspecified (principal) | CPT/HCPCS: 87070 ==

== ENCOUNTER → 2025-11-12 | Outpatient (CLI) | payer OTHER, SELFPAY ==
--- NOTE | 2025-11-12 15:21 | US_ITS ---
PROCEDURE: OB ANATOMY SCAN 11/12/2025 REASON FOR EXAM: SCREEN TECHNIQUE: Procedure Code: USOBANATOMY Modality: US Procedure: OB ANATOMY SCAN COMPARISON: None FINDINGS Number: 1 Position: Breech Placental Position: Anterior and not low-lying Placental Abnormalities: No evidence of previa. DIMENSIONS: Biparietal Diameter: 5.1 cm: 21 weeks and 3 days: 68 percentile/ Head Circumference: 18.4 cm: 20 weeks and 6 days: 32 percentile/ Abdominal Circumference: 17.3 cm: 22 weeks and 2 days: 82nd percentile/ Femur Length: 3.5 cm: 21 weeks and 0 days: 40 percentile/ ESTIMATED WEIGHT: 445 g plus/-67 g ESTIMATED WEIGHT PERCENTILE (24+ weeks): 80 ESTIMATED GESTATIONAL AGE: Baseline: 21 weeks and 0 days By Ultrasound: 21 weeks and 2 days ESTIMATED DATE OF DELIVERY: Baseline: March 25, 2026 By Ultrasound: March 23, 2026 BIOPHYSICAL ASSESSMENT: Amniotic Fluid Volume: 5.7 cm Amniotic Fluid Index: Within normal limits. (8-24 cm normal range) Cardiac Motion: 153 beats per minute (average) Trunk and Limb Motion: Present. MATERNAL ANATOMY: Adnexa: Both maternal ovaries are visualized and unremarkable. Cervical Length (if measured): 4.6 cm ANATOMY: Spine: Unremarkable Cranium: Unremarkable Cerebellum: Unremarkable Cisterna Magna: Unremarkable Cavum Septum Pellucidi: Unremarkable Lateral Ventricles: Choroid Plexus: Unremarkable Midline Falx: Unremarkable Nuchal Fold: Upper Lip: Unremarkable Heart: Unremarkable Stomach: Unremarkable Kidneys: Unremarkable Bladder: Unremarkable Umbilical Cord: Normal umbilical cord insertion. Extremities: Unremarkable US/OB Anatomy Scan IMPRESSION: Single live intrauterine gestation with a mean gestational age of 21 weeks and 2 days. Reading Location: [id number]
== END | disposition home or self-care (01) ==
DX: Z36.3 Encounter for antenatal screening for malformations (principal)
CPT/HCPCS: 76805